=== PATIENT | male | born 1975 ===

== ENCOUNTER 2017-01-14 19:57 | Inpatient (IN) | payer OTHER ==
[2017-01-14] MEDS ORDERED: Albuterol-Ipratrop 3 mg / 0.5 (3 ml) UD IH STA (21:16)
[2017-01-14] MEDS ORDERED: Sodium Chloride 0.9% 1,000 ML IV STA (21:16)
--- NOTE | 2017-01-14 21:20 | ED PDOC ---
HPI: General Adult <Bulmaro Mosley III - Last Filed: 01/15/17 00:45> Chief Complaint (Provider): fever History Per: Patient History/Exam Limitations: no limitations Onset/Duration Of Symptoms: Days (5) Current Symptoms Are (Timing): Still Present Additional History Per: Patient <Alexia Anton - Last Filed: 01/15/17 04:13> Time Seen by Provider: 01/14/17 21:01 Chief Complaint (Nursing): Fever Additional Complaint(s): 41 y/o male presents with fever x 5 days. Associated headache, bodyaches, and dry cough with deep breaths. Patient went back to work today and feels symptoms were worsened. Last dose Tylenol 16:00. Denies neck pain/stiffness, ear pain, throat pain, nausea/vomiting, chest pain, shortness of breath, palpitations, abdominal pain, recent travel, sick contacts. (Alexia Anton) Past Medical History <Bulmaro Mosley III - Last Filed: 01/15/17 00:45> Reviewed: Historical Data, Nursing Documentation, Vital Signs - Medical History PMH: No Chronic Diseases - Surgical History Surgical History: Appendectomy - Family History Family History: States: Unknown Family Hx - Living Arrangements Living Arrangements: With Family <Alexia Anton - Last Filed: 01/15/17 04:13> Vital Signs: Last Vital Signs Temp 99.1 F 01/15/17 04:07 Pulse 89 01/15/17 04:07 Resp 18 01/15/17 04:07 BP 120/60 01/15/17 04:07 Pulse Ox 100 01/15/17 04:12 - Home Medications Home Medications: Ambulatory Orders Medication Instructions Recorded No Known Home Med 01/15/17 - Allergies Allergies/Adverse Reactions: Allergies Allergy/AdvReac Type Severity Reaction Status Date / Time No Known Allergies Allergy Verified 01/14/17 20:30 Review of Systems ROS Statement: Except As Marked, All Systems Reviewed And Found Negative Constitutional: Positive for: Fever Respiratory: Positive for: Cough <Alexia Anton - Last Filed: 01/15/17 04:13> Physical Exam - Reviewed Nursing Documentation Reviewed: Yes Vital Signs Reviewed: Yes - Physical Exam Appears: Positive for: Well, Non-toxic, No Acute Distress Head Exam: Positive for: ATRAUMATIC, NORMAL INSPECTION, NORMOCEPHALIC Skin: Positive for: Normal Color Eye Exam: Positive for: Normal appearance, EOMI, PERRL ENT: Positive for: Normal ENT Inspection Neck: Positive for: Normal, Painless ROM Cardiovascular/Chest: Positive for: Regular Rate, Rhythm Respiratory: Positive for: Normal Breath Sounds Gastrointestinal/Abdominal: Positive for: Normal Exam Back: Positive for: Normal Inspection Extremity: Positive for: Normal ROM Neurologic/Psych: Positive for: Alert, Oriented <Alexia Anton - Last Filed: 01/15/17 04:13> - Laboratory Results Result Diagrams: 01/14/17 21:52 01/14/17 21:52 <Bulmaro Mosley III - Last Filed: 01/15/17 00:45> - Laboratory Results Result Diagrams: 01/14/17 21:52 01/14/17 21:52 - ECG ECG: Positive for: Viewed By Me (reviewed by ED attending) ECG Rhythm: Positive for: Sinus Rhythm O2 Sat by Pulse Oximetry: 100 - Radiology X-Ray: Viewed By Me X-Ray Interpretation: No Acute Disease <Alexia Anton - Last Filed: 01/15/17 04:13> - Progress ED Course And Treament: labs, flu, strep, chest xray, IV fluids, PO tylenol Patient evaluated by ED attending Dr. Mosley; lumbar puncture procedure explained/recommended for persistent headaches, fever including risks vs benefits. Patient agreeable CT head ordered Consent signed for procedure. Procedure performed by Dr. Mosley; csf sent. 3:00 Patient states he is feeling better; headache improved Case discussed with ED attending Dr. Rosa; will place in observation for persistent fever, headache. IV rocephin, IV acyclovir, IV vanco ordered (Alexia Anton) Medical Decision Making <Bulmaro Mosley III - Last Filed: 01/15/17 00:45> <Alexia Anton - Last Filed: 01/15/17 04:13> Medical Decision Making: attending note procedure note Given fever, headache, mild elev WBC, normal CT brain, decision made to perform LP r/o meningitis. Consent obtained via japanese fluent RN translating. Risks of infection, spinal leak, nerve damage or other complications explained. Pt sat upright, lidocaine 2% 4ml infiltrated into L3L4 space. Spinal needle inserted w return of clear CSF on second attempt. 4 tubes obtained. Stylet replaced and needle withdrawn. Placed supine, tolerated well. Endorse Dr Rosa [id number] pending LP results and dispo. (Bulmaro Mosley III) Disposition <Bulmaro Mosley III - Last Filed: 01/15/17 00:45> - Patient ED Disposition Is Patient to be Admitted: Yes - Disposition Disposition Time: 03:20 - Pt Status Changed To: Hospital Disposition Of: Observation - POA Present On Arrival: None <Alexia Anton - Last Filed: 01/15/17 04:13> - Clinical Impression Clinical Impression: Febrile illness, Headache - Disposition Condition: FAIR
[2017-01-14 22:08] LABS: BASO # 0.1 K/uL (0.0-0.2); BASO % 0.5 % (0.0-2.0); EOS % 0.3 % (0.0-4.0); HEMATOCRIT 40.8 % (35.0-51.0); LYMPH # 2.1 K/uL (1.0-4.3); LYMPH % 18.6 % (20.0-40.0); MEAN CELL VOLUME 90.7 fl (80.0-94.0); MEAN CORPUSCULAR HEMOGLOBIN 30.6 pg (27.0-31.0); MEAN CORPUSCULAR HGB CONC 33.8 g/dL (33.0-37.0); MEAN PLATELET VOLUME 8.3 fl (7.2-11.7); MONO # 1.3 K/uL (0.0-0.8); MONO % 11.5 % (0.0-10.0); NEUT # 7.7 K/uL (1.8-7.0); NEUT % 69.1 % (50.0-75.0); NRBC % 0.1 % (0.0-0.0); RED CELL DISTRIBUTION WIDTH 13.1 % (11.5-14.5); WHITE BLOOD COUNT 11.1 K/uL (4.8-10.8)
[2017-01-14] MEDS ORDERED: Albuterol-Ipratrop 3 mg / 0.5 (3 ml) UD ONE (22:12)
[2017-01-14 22:21] LABS: ALB/GLOB RATIO 1.2 (1.0-2.1); ALKALINE PHOSPHATASE 134 U/L (38-126); ALT/SGPT 101 U/L (21-72); AST/SGOT 65 U/L (17-59); BILIRUBIN,TOTAL 0.6 mg/dl (0.2-1.3); BLOOD UREA NITROGEN 11 mg/dl (9-20); CALCIUM 9.4 mg/dL (8.4-10.2); CARBON DIOXIDE 28 mmol/L (22-30); CHLORIDE 97 mmol/L (98-107); GFR AFRICAN-AMERICAN > 60; GLUCOSE,RANDOM 116 mg/dL (75-110); POTASSIUM 3.9 MMOL/L (3.6-5.0); SODIUM 138 mmol/l (132-148); TOTAL PROTEIN 8.7 G/DL (6.3-8.2)
[2017-01-15 00:53] LABS: FLUID TYPE SPINAL FLUID
[2017-01-15 01:34] LABS: CSF COMMENT COLORLESS
[2017-01-15 02:30] LABS: CSF NEUTROPHIL 0 % (0-0)
[2017-01-15] MEDS ORDERED: Vancomycin 1 g Inj ONE (03:17)
--- NOTE | 2017-01-15 03:59 | CP.PCM.HP ---
History of Present Illness - History of Present Illness History of Present Illness: Chief Complaint: headache and fever HPI: 41 M no PMH presents with a 5 day history of worsening headache, mild progressing to severe, sharp and stabbing, generalized headache, nonradiating, associated with fevers. Tmax in ER was 102. Patient denies sick contacts, no neck pain or stiffness or nuchal rigidity. WBC mildly elevated, LP neg for glucose and protein. +1 WBC, 1 RBC, no monos, no cell count. Pt given ceftriaxone, vancomycin, and acyclovir. Pt vitals reviewed, now afebrile. No acute distress. ROS: Per HPI, all other systems reviewed negative by me PMH: denies PSH: appendectomy FH: denies SH: denies tobacco, etoh, ivdu. Quit tobacco 3 years ago. ALLERGIES: NKDA MEDICATIONS: reviewed and as below Temp Pulse Resp BP Pulse Ox 99.1 F 89 18 120/60 100 01/15/17 03:15 01/15/17 03:15 01/15/17 03:15 01/15/17 03:15 01/15/17 04:01 GENERAL APPEARANCE: Well developed, well nourished, alert and cooperative, and appears to be in no acute distress. HEENT: normocephalic, atraumatic PERRL, EOMI. Vision is grossly intact. External auditory canals clear, hearing grossly intact. No nasal discharge. Oral cavity and pharynx normal. No inflammation, swelling, exudate, or lesions. NECK: Neck supple, non-tender without lymphadenopathy, masses or thyromegaly. No nuchal rgidity. CARDIAC: Normal S1 and S2. No S3, S4 or murmurs. Rhythm is regular. LUNGS: Clear to auscultation and percussion without rales, rhonchi, wheezing or diminished breath sounds. ABDOMEN: Positive bowel sounds. Soft, nondistended, nontender. No guarding or rebound. No masses. BACK: Examination of the spine reveals no spinal deformity, symmetry of spinal muscles, EXTREMITIES: No significant deformity or joint abnormality. No edema. NEUROLOGICAL: Strength and sensation symmetric and intact throughout. Reflexes 2 + throughout. SKIN: Skin normal color, texture and turgor with no lesions or eruptions. PSYCHIATRIC: The patient was oriented to person, place, and time. Normal affect. LABS: 01/14/17 21:52 01/14/17 21:[address] report pending, prelim, neg. ACTIVE MEDICATIONS Allergies No Known Allergies Allergy (Verified 01/14/17 20:30) Height & Weight Height 5 ft 6 in Weight 165 lb 5.547 oz Start Date/Time Active Medications 01/15/17 03:16 Vancomycin [Vancomycin Inj] 1 gm Sodium Chloride 0.9% 250 ml IVPB STAT 01/15/17 03:17 Acyclovir [Zovirax 500 mg Inj] 800 mg Sodium Chloride 0.9% 250 ml IVPB STAT cefTRIAXone [Rocephin] 1 gm Sodium Chloride 0.9% 100 ml IV STAT 01/15/17 09:00 Acyclovir 800 MG/250ML NS Q8H Acyclovir [Zovirax 500 mg Inj] 800 mg Sodium Chloride 0.9% 250 ml IVPB Q8 Enoxaparin [Lovenox] 40 mg SC DAILY ASSESSMENT AND PLAN 41 M no PMH presents with a 5 day history of worsening headache, mild progressing to severe, sharp and stabbing, generalized headache, nonradiating, associated with fevers. Tmax in ER was 102. Patient denies sick contacts. WBC mildly elevated, LP neg for glucose and protein. +1 WBC, 1 RBC, no monos, no cell count. Pt given ceftriaxone, vancomycin, and acyclovir. Pt vitals reviewed , now afebrile. No acute distress. Concern for possible Viral Meningitis - LP cultures, herpes pending - currently afebrile, no nuchal rigidity - continue Acyclovir at present patient received one dose Vanc and Ceftriaxone in ER as well - procalcitonin ordered - monitor closely - consider ID consult DVT prophylaxis LOVENOX SC daily. Present on Admission - Present on Admission Any Indicators Present on Admission: No Past Patient History - Past Social History Smoking Status: Never Smoked - PSYCHIATRIC Hx Substance Use: No - SURGICAL HISTORY Hx Appendectomy: Yes - ANESTHESIA Hx Anesthesia: Yes Hx Anesthesia Reactions: No Meds Allergies/Adverse Reactions: Allergies Allergy/AdvReac Type Severity Reaction Status Date / Time No Known Allergies Allergy Verified 01/14/17 20:30 Results - Vital Signs Recent Vital Signs: Last Vital Signs Temp 99.1 F 01/15/17 03:15 Pulse 89 01/15/17 03:15 Resp 18 01/15/17 03:15 BP 120/60 01/15/17 03:15 Pulse Ox 98 01/15/17 03:15 - Labs Result Diagrams: 01/14/17 21:52 01/14/17 21:52
[2017-01-15] MEDS ORDERED: cefTRIAXone (Rocephin) 1 gm Inj ONE (04:00)
[2017-01-15 07:35] LABS: HEMATOCRIT 42.7 % (35.0-51.0); MEAN CELL VOLUME 91.2 fl (80.0-94.0); MEAN CORPUSCULAR HEMOGLOBIN 30.6 pg (27.0-31.0); MEAN CORPUSCULAR HGB CONC 33.6 g/dL (33.0-37.0); RED CELL DISTRIBUTION WIDTH 13.1 % (11.5-14.5); WHITE BLOOD COUNT 8.3 K/uL (4.8-10.8)
[2017-01-15 07:38] LABS: BLOOD UREA NITROGEN 10 mg/dl (9-20); CALCIUM 8.8 mg/dL (8.4-10.2); CARBON DIOXIDE 26 mmol/L (22-30); CHLORIDE 103 mmol/L (98-107); GFR AFRICAN-AMERICAN > 60; GLUCOSE,RANDOM 116 mg/dL (75-110); POTASSIUM 3.9 MMOL/L (3.6-5.0); SODIUM 140 mmol/l (132-148)
[2017-01-15] MEDS ORDERED: Pneumococcal 23-Valent Vaccine IM ONE (09:00)
[2017-01-15] MEDS: Enoxaparin 40 mg Syringe SC SCH (09:06)
--- NOTE | 2017-01-15 09:27 | CT ---
PROCEDURE: CT HEAD WITHOUT CONTRAST. HISTORY: fever, headache COMPARISON: None available. TECHNIQUE: Axial computed tomography images were obtained through the head/brain without intravenous contrast. Radiation dose: Total exam DLP = 873.03 mGy-cm. This CT exam was performed using one or more of the following dose reduction techniques: Automated exposure control, adjustment of the mA and/or kV according to patient size, and/or use of iterative reconstruction technique. FINDINGS: HEMORRHAGE: No intracranial hemorrhage. BRAIN: No mass effect or edema. No atrophy or chronic microvascular ischemic changes. VENTRICLES: Unremarkable. No hydrocephalus. CALVARIUM: Unremarkable. PARANASAL SINUSES: Unremarkable as visualized. No significant inflammatory changes. MASTOID AIR CELLS: Unremarkable as visualized. No inflammatory changes. OTHER FINDINGS: None. IMPRESSION: Normal CT of the Head.
--- NOTE | 2017-01-15 10:10 | RAD ---
HISTORY: fever, cough COMPARISON: No prior. TECHNIQUE: Chest PA and lateral FINDINGS: LUNGS: Poor inspiration with low lung volumes, mild crowded bronchovascular markings and minor bibasilar atelectasis. PLEURA: No significant pleural effusion identified. No pneumothorax apparent. CARDIOVASCULAR: Normal. OSSEOUS STRUCTURES: Minimal multilevel degenerative spondylosis of the thoracic spine. VISUALIZED UPPER ABDOMEN: Normal. OTHER FINDINGS: None. IMPRESSION: Poor inspiration with low lung volumes, mild crowded bronchovascular markings and minor bibasilar atelectasis.
[2017-01-15 12:50] LABS: ALB/GLOB RATIO 1.1 (1.0-2.1); ALKALINE PHOSPHATASE 130 U/L (38-126); ALT/SGPT 90 U/L (21-72); AST/SGOT 67 U/L (17-59); BILIRUBIN,TOTAL 0.5 mg/dl (0.2-1.3); BLOOD UREA NITROGEN 11 mg/dl (9-20); CALCIUM 9.1 mg/dL (8.4-10.2); CARBON DIOXIDE 27 mmol/L (22-30); CHLORIDE 101 mmol/L (98-107); GFR AFRICAN-AMERICAN > 60; GLUCOSE,RANDOM 102 mg/dL (75-110); POTASSIUM 4.2 MMOL/L (3.6-5.0); SODIUM 140 mmol/l (132-148); TOTAL PROTEIN 8.5 G/DL (6.3-8.2)
[2017-01-15 14:16] LABS: RBC URINE 3 /hpf (0-3); URINE BILIRUBIN NEGATIVE (NEGATIVE); URINE BLOOD SMALL (NEGATIVE); URINE COLOR YELLOW (YELLOW); URINE GLUCOSE (UA) NEG (Normal); URINE KETONE NEGATIVE (NEGATIVE); URINE LEUKOCYTE ESTERASE NEG Leu/uL (Negative); URINE PROTEIN NEGATIVE (NEGATIVE); URINE UROBILINOGEN 0.2-1.0 mg/dL (0.2-1.0); WBC URINE < 1 /hpf (0-5)
[2017-01-16 08:02] LABS: BASO # 0.1 K/uL (0.0-0.2); BASO % 0.4 % (0.0-2.0); EOS % 0.1 % (0.0-4.0); HEMATOCRIT 42.2 % (35.0-51.0); LYMPH # 2.1 K/uL (1.0-4.3); LYMPH % 16.3 % (20.0-40.0); MEAN CELL VOLUME 90.7 fl (80.0-94.0); MEAN CORPUSCULAR HEMOGLOBIN 30.4 pg (27.0-31.0); MEAN CORPUSCULAR HGB CONC 33.5 g/dL (33.0-37.0); MEAN PLATELET VOLUME 8.3 fl (7.2-11.7); MONO # 1.4 K/uL (0.0-0.8); MONO % 10.5 % (0.0-10.0); NEUT # 9.4 K/uL (1.8-7.0); NEUT % 72.7 % (50.0-75.0); RED CELL DISTRIBUTION WIDTH 12.9 % (11.5-14.5); WHITE BLOOD COUNT 12.9 K/uL (4.8-10.8)
[2017-01-16] MEDS: Enoxaparin 40 mg Syringe SC SCH (09:50)
--- NOTE | 2017-01-16 14:25 | CP.PCM.CON ---
History of Present Illness - History of Present Illness History of Present Illness: Infectious Disease Consultation Note- asked to see this patient at the request of Hospitalist for FUO. HPI- Pt. is a 41 y/o male with no PMH who was admitted with c/o fever and KEMP doer past few days. Pt. states the KEMP are mostly frontal and at times the pain is behind his eyes, however he denies nay diplopia and denies any blurry vision. Pt. denies any neck pain or stiffness. Denies nay recent travel, denies any sick contacts, denies any sob , but states has mild nonproductive cough, denies any sore throat, denies any sob, denies any chest pain, denies any abd. pain, denies any n/v, denies any diarrhea, denies any dysurea. He is originally from [place] but has been living in for past 2 years. Pt. also states he has slight myalgias with the fever. He denies having anything similar to this before. Pt. has been febrile since admission between 103-101 , minimal leukocytosis only and CSF is clear and no WBC and so far CSF culture is also negative. He has been empirically started on ceftriaxone, vanco and acyclovir as per the primary team. Pt. currently states he feels slightly better compared to admission, however, he still is getting fevers along with frontal KEMP with the onset of the fever. PMH: denies PSH: appendectomy FH: denies SH: denies tobacco, etoh, ivdu. Quit tobacco 3 years ago. ALLERGIES: NKDA Review of Systems - Review of Systems Review of Systems: ROS- + fever, + frontal KEMP, denies any neck pain or stiffness, denies any sob, denies any chest pain, minimal dry cough, denies any abd. pain, denies any n/v, denies any diplopia or any blurry vision, denies any dysurea, denies any diarrhea. denies nay tick or mosquito bites denies any animal exposure except his dog which he has had for one year Past Patient History - Past Medical History & Family History Past Medical History?: No - Past Social History Smoking Status: Former Smoker Alcohol: Occasional Drugs: Denies Home Situation {Lives}: With Family - CARDIAC Hx Cardiac Disorders: No - PULMONARY Hx Respiratory Disorders: No - NEUROLOGICAL Hx Neurological Disorder: No - HEENT Hx HEENT Problems: No - RENAL Hx Chronic Kidney Disease: No - ENDOCRINE/METABOLIC Hx Endocrine Disorders: No - HEMATOLOGICAL/ONCOLOGICAL Hx Blood Disorders: No - INTEGUMENTARY Hx Dermatological Problems: No - MUSCULOSKELETAL/RHEUMATOLOGICAL Hx Falls: No - GASTROINTESTINAL Hx Gastrointestinal Disorders: No - GENITOURINARY/GYNECOLOGICAL Hx Genitourinary Disorders: No - PSYCHIATRIC Hx Substance Use: No - SURGICAL HISTORY Hx Appendectomy: Yes - ANESTHESIA Hx Anesthesia: Yes Hx Anesthesia Reactions: No Meds Allergies/Adverse Reactions: Allergies Allergy/AdvReac Type Severity Reaction Status Date / Time No Known Allergies Allergy Verified 01/14/17 20:30 - Medications Medications: Current Medications Acetaminophen (Tylenol 325mg Tab) 650 mg PO Q4 PRN PRN Reason: Fever >100.4 F Last Admin: 01/16/17 07:33 Dose: 650 mg Enoxaparin Sodium (Lovenox) 40 mg SC DAILY COLLIN PRN Reason: Protocol Last Admin: 01/16/17 09:50 Dose: 40 mg Acyclovir 800 mg/ Sodium (Chloride) 250 mls @ 250 mls/hr IVPB Q8 COLLIN Last Admin: 01/16/17 09:49 Dose: 250 mls/hr Physical Exam - Constitutional Appears: No Acute Distress - Head Exam Head Exam: ATRAUMATIC - Eye Exam Eye Exam: EOMI, PERRL - ENT Exam Additional comments: dry oral mucosa - Neck Exam Neck exam: Positive for: Full Rom Additional comments: supple - Respiratory Exam Respiratory Exam: NORMAL BREATHING PATTERN Additional comments: no wheezing good air entry b/l minimal coarse breath sounds at right base - Cardiovascular Exam Cardiovascular Exam: RRR, +S1, +S2 - GI/Abdominal Exam GI & Abdominal Exam: Normal Bowel Sounds, Soft Additional comments: NT, ND - Extremities Exam Extremities exam: Positive for: normal inspection - Neurological Exam Neurological exam: Alert, Oriented x3 Results - Vital Signs Recent Vital Signs: Last Vital Signs Temp 99.0 F 01/16/17 08:33 Pulse 109 H 01/16/17 07:43 Resp 20 01/16/17 07:43 BP 126/75 01/16/17 07:43 Pulse Ox 95 01/16/17 07:43 - Labs Result Diagrams: 01/16/17 07:05 01/15/17 12:10 Labs: Laboratory Results - last 72 hr 05/01/14/17 01/14/17 21:52 21:52 21:52 WBC 11.1 H RBC 4.50 Hgb 13.8 Hct 40.8 MCV 90.7 MCH 30.6 MCHC 33.8 RDW 13.1 Plt Count 215 MPV 8.3 Neut % (Auto) 69.1 Lymph % (Auto) 18.6 L Pope % (Auto) 11.5 H Eos % (Auto) 0.3 Baso % (Auto) 0.5 Neut # 7.7 H Lymph # 2.1 Pope # 1.3 H Eos # 0.0 Baso # 0.1 Sodium 138 Potassium 3.9 Chloride 97 L Carbon Dioxide 28 Anion Gap 17 BUN 11 Creatinine 0.9 Est GFR ( Amer) > 60 Est GFR (Non-Af Amer) > 60 Random Glucose 116 H Lactic Acid 1.0 Calcium 9.4 Total Bilirubin 0.6 AST 65 H ALT 101 H Alkaline Phosphatase 134 H Total Protein 8.7 H Albumin 4.7 Globulin 4.0 H Albumin/Globulin Ratio 1.2 Procalcitonin Urine Color Urine Clarity Urine pH Ur Specific Rocky Urine Protein Urine Glucose (UA) Urine Ketones Urine Blood Urine Nitrate Urine Bilirubin Urine Urobilinogen Ur Leukocyte Esterase Urine RBC (Auto) Urine Microscopic WBC Amorphous Sediment Fluid Type CSF Volume CSF Appearance CSF WBC CSF RBC CSF Total Cell Counted CSF Neutrophils CSF Lymphocytes CSF Monos/Macrophages CSF Comment CSF Glucose CSF Total Protein Hepatitis A IgM Ab Hep Bs Antigen Hep B Core IgM Ab Hepatitis C Antibody HIV-1 Ab Rapid Screen Influenza Typ A,B (EIA) Grp A Beta Strep Ag 01/14/17 01/14/17 01/15/17 22:23 22:23 00:51 WBC RBC Hgb Hct MCV MCH MCHC RDW Plt Count MPV Neut % (Auto) Lymph % (Auto) Pope % (Auto) Eos % (Auto) Baso % (Auto) Neut # Lymph # Pope # Eos # Baso # Sodium Potassium Chloride Carbon Dioxide Anion Gap BUN Creatinine Est GFR ( Amer) Est GFR (Non-Af Amer) Random Glucose Lactic Acid Calcium Total Bilirubin AST ALT Alkaline Phosphatase Total Protein Albumin Globulin Albumin/Globulin Ratio Procalcitonin Urine Color Urine Clarity Urine pH Ur Specific Rocky Urine Protein Urine Glucose (UA) Urine Ketones Urine Blood Urine Nitrate Urine Bilirubin Urine Urobilinogen Ur Leukocyte Esterase Urine RBC (Auto) Urine Microscopic WBC Amorphous Sediment Fluid Type Spinal fluid CSF Volume 1 CSF Appearance Clear/colorless CSF WBC 1.0 CSF RBC 1.0 H CSF Total Cell Counted TEST NOT PERFORMED CSF Neutrophils 0 CSF Lymphocytes 0.0 CSF Monos/Macrophages 0 CSF Comment Colorless CSF Glucose CSF Total Protein Hepatitis A IgM Ab Hep Bs Antigen Hep B Core IgM Ab Hepatitis C Antibody HIV-1 Ab Rapid Screen Influenza Typ A,B (EIA) Negative for flu a/b Grp A Beta Strep Ag Negative 01/15/17 01/15/17 01/15/17 00:51 00:51 02:07 WBC RBC Hgb Hct MCV MCH MCHC RDW Plt Count MPV Neut % (Auto) Lymph % (Auto) Pope % (Auto) Eos % (Auto) Baso % (Auto) Neut # Lymph # Pope # Eos # Baso # Sodium Potassium Chloride Carbon Dioxide Anion Gap BUN Creatinine Est GFR ( Amer) Est GFR (Non-Af Amer) Random Glucose Lactic Acid Calcium Total Bilirubin AST ALT Alkaline Phosphatase Total Protein Albumin Globulin Albumin/Globulin Ratio Procalcitonin Urine Color Urine Clarity Urine pH Ur Specific Rocky Urine Protein Urine Glucose (UA) Urine Ketones Urine Blood Urine Nitrate Urine Bilirubin Urine Urobilinogen Ur Leukocyte Esterase Urine RBC (Auto) Urine Microscopic WBC Amorphous Sediment Fluid Type CSF Volume CSF Appearance CSF WBC CSF RBC CSF Total Cell Counted CSF Neutrophils CSF Lymphocytes CSF Monos/Macrophages CSF Comment CSF Glucose 63 CSF Total Protein 23.0 Hepatitis A IgM Ab Hep Bs Antigen Hep B Core IgM Ab Hepatitis C Antibody HIV-1 Ab Rapid Screen Non reactive Influenza Typ A,B (EIA) Grp A Beta Strep Ag 01/15/17 01/15/17 01/15/17 07:13 07:13 12:10 WBC 8.3 RBC 4.68 Hgb 14.3 Hct 42.7 MCV 91.2 MCH 30.6 MCHC 33.6 RDW 13.1 Plt Count 199 MPV Neut % (Auto) Lymph % (Auto) Pope % (Auto) Eos % (Auto) Baso % (Auto) Neut # Lymph # Pope # Eos # Baso # Sodium 140 140 Potassium 3.9 4.2 Chloride 103 101 Carbon Dioxide 26 27 Anion Gap 15 17 BUN 10 11 Creatinine 0.9 0.9 Est GFR ( Amer) > 60 > 60 Est GFR (Non-Af Amer) > 60 > 60 Random Glucose 116 H 102 Lactic Acid Calcium 8.8 9.1 Total Bilirubin 0.5 AST 67 H ALT 90 H Alkaline Phosphatase 130 H Total Protein 8.5 H Albumin 4.4 Globulin 4.1 H Albumin/Globulin Ratio 1.1 Procalcitonin Urine Color Urine Clarity Urine pH Ur Specific Rocky Urine Protein Urine Glucose (UA) Urine Ketones Urine Blood Urine Nitrate Urine Bilirubin Urine Urobilinogen Ur Leukocyte Esterase Urine RBC (Auto) Urine Microscopic WBC Amorphous Sediment Fluid Type CSF Volume CSF Appearance CSF WBC CSF RBC CSF Total Cell Counted CSF Neutrophils CSF Lymphocytes CSF Monos/Macrophages CSF Comment CSF Glucose CSF Total Protein Hepatitis A IgM Ab Hep Bs Antigen Hep B Core IgM Ab Hepatitis C Antibody HIV-1 Ab Rapid Screen Influenza Typ A,B (EIA) Grp A Beta Strep Ag 01/15/17 01/15/17 01/15/17 12:10 12:10 14:10 WBC RBC Hgb Hct MCV MCH MCHC RDW Plt Count MPV Neut % (Auto) Lymph % (Auto) Pope % (Auto) Eos % (Auto) Baso % (Auto) Neut # Lymph # Pope # Eos # Baso # Sodium Potassium Chloride Carbon Dioxide Anion Gap BUN Creatinine Est GFR ( Amer) Est GFR (Non-Af Amer) Random Glucose Lactic Acid Calcium Total Bilirubin AST ALT Alkaline Phosphatase Total Protein Albumin Globulin Albumin/Globulin Ratio Procalcitonin 0.11 L Urine Color Yellow Urine Clarity Clear Urine pH 7.0 Ur Specific Rocky 1.018 Urine Protein Negative Urine Glucose (UA) Neg Urine Ketones Negative Urine Blood Small Urine Nitrate Negative Urine Bilirubin Negative Urine Urobilinogen 0.2-1.0 Ur Leukocyte Esterase Neg Urine RBC (Auto) 3 Urine Microscopic WBC < 1 Amorphous Sediment Rare H Fluid Type CSF Volume CSF Appearance CSF WBC CSF RBC CSF Total Cell Counted CSF Neutrophils CSF Lymphocytes CSF Monos/Macrophages CSF Comment CSF Glucose CSF Total Protein Hepatitis A IgM Ab Negative Hep Bs Antigen Negative Hep B Core IgM Ab Negative Hepatitis C Antibody Negative HIV-1 Ab Rapid Screen Influenza Typ A,B (EIA) Grp A Beta Strep Ag 01/16/17 07:05 WBC 12.9 H D RBC 4.65 Hgb 14.1 Hct 42.2 MCV 90.7 MCH 30.4 MCHC 33.5 RDW 12.9 Plt Count 273 MPV 8.3 Neut % (Auto) 72.7 Lymph % (Auto) 16.3 L Pope % (Auto) 10.5 H Eos % (Auto) 0.1 Baso % (Auto) 0.4 Neut # 9.4 H Lymph # 2.1 Pope # 1.4 H Eos # 0.0 Baso # 0.1 Sodium Potassium Chloride Carbon Dioxide Anion Gap BUN Creatinine Est GFR ( Amer) Est GFR (Non-Af Amer) Random Glucose Lactic Acid Calcium Total Bilirubin AST ALT Alkaline Phosphatase Total Protein Albumin Globulin Albumin/Globulin Ratio Procalcitonin Urine Color Urine Clarity Urine pH Ur Specific Rocky Urine Protein Urine Glucose (UA) Urine Ketones Urine Blood Urine Nitrate Urine Bilirubin Urine Urobilinogen Ur Leukocyte Esterase Urine RBC (Auto) Urine Microscopic WBC Amorphous Sediment Fluid Type CSF Volume CSF Appearance CSF WBC CSF RBC CSF Total Cell Counted CSF Neutrophils CSF Lymphocytes CSF Monos/Macrophages CSF Comment CSF Glucose CSF Total Protein Hepatitis A IgM Ab Hep Bs Antigen Hep B Core IgM Ab Hepatitis C Antibody HIV-1 Ab Rapid Screen Influenza Typ A,B (EIA) Grp A Beta Strep Ag Microbiology 01/15/17 02:20 Blood-Venous Blood Culture - Preliminary NO GROWTH AFTER 24 HOURS 01/15/17 02:20 Blood-Venous Blood Culture - Preliminary NO GROWTH AFTER 24 HOURS 01/15/17 00:51 Cerebral Spinal Fluid Gram Stain - Final Accession No. : [id number] Patient Name / ID : TASHI TUCKER / [id number] Exam Date : 01/14/2017 21:37:50 ( Approved ) Study Comment : Sex / Age : M / 41Y Creator : Dimas Peralta MD Dictator : Dimas Peralta MD Director Of Audiology : Wind Farm Engineer : Dimas Peralta MD Approver2 : Report Date : 01/15/2017 10:08:12 My Comment : HISTORY: fever, cough COMPARISON: No prior. TECHNIQUE: Chest PA and lateral FINDINGS: LUNGS: Poor inspiration with low lung volumes, mild crowded bronchovascular markings and minor bibasilar atelectasis. PLEURA: No significant pleural effusion identified. No pneumothorax apparent. CARDIOVASCULAR: Normal. OSSEOUS STRUCTURES: Minimal multilevel degenerative spondylosis of the thoracic spine. VISUALIZED UPPER ABDOMEN: Normal. OTHER FINDINGS: None. IMPRESSION: Poor inspiration with low lung volumes, mild crowded bronchovascular markings and minor bibasilar atelectasis. Accession No. : [id number] Patient Name / ID : TASHI TUCKER / [id number] Exam Date : 01/15/2017 00:06:53 ( Approved ) Study Comment : Sex / Age : M / 41Y Creator : Dimas Peralta MD Dictator : Dimas Peralta MD Director Of Audiology : Wind Farm Engineer : Dimas Peralta MD Approver2 : Report Date : 01/15/2017 09:25:46 My Comment : PROCEDURE: CT HEAD WITHOUT CONTRAST. HISTORY: fever, headache COMPARISON: None available. TECHNIQUE: Axial computed tomography images were obtained through the head/brain without intravenous contrast. Radiation dose: Total exam DLP = 873.03 mGy-cm. This CT exam was performed using one or more of the following dose reduction techniques: Automated exposure control, adjustment of the mA and/or kV according to patient size, and/or use of iterative reconstruction technique. FINDINGS: HEMORRHAGE: No intracranial hemorrhage. BRAIN: No mass effect or edema. No atrophy or chronic microvascular ischemic changes. VENTRICLES: Unremarkable. No hydrocephalus. CALVARIUM: Unremarkable. PARANASAL SINUSES: Unremarkable as visualized. No significant inflammatory changes. MASTOID AIR CELLS: Unremarkable as visualized. No inflammatory changes. OTHER FINDINGS: None. IMPRESSION: Normal CT of the Head. Assessment & Plan (1) Febrile illness Status: Acute (2) Headache Status: Acute - Assessment and Plan (Free Text) Assessment: A/P- 41 year old male with FUO. so far the etiology of the fever is unclear. r/o infectious vs noninfectious inflammatory etiology vs malignancy. blood cx- neg x 2 CSF cell cell count and gram stain and culture so far negative CXR- not very conclusive , does have mild cough HIV AB- negative hepatitis panel negative has High LFTs and High Globulin. influenza- negative. plan- check 2 more blood cx. check UA and urine cx. check CSF HSV PCR r/o hsv viral meningitis , in the interim continue with Iv acyclovir pending this result. check Lyme serolgy and if lab can add Lyme AB to the csf specimen to be tested as well. eventhough HIV ab is negative, advise to check HIV VL as well. check bartonella serology. check EBV serology. check CMV serology. check quantiferon gold. check ESR . check P- Anca , C-anca. check JAY and anti ds- DNA check JUSTIN levels. check chest/abd CT for further evaluation. check 2d echo r/o IE. r/o temporal arteritis if high ESR and if continues to have KEMP and fever. advise to continue with IV ceftriaxone pending further results and final CSF cx . check sputum cx as well. check RPR and CSF VDRL as well. Thank you for allowing me to take part in the care of this patient. All above d/w patient at length and he verbalizes full understanding of all above.
[2017-01-16] MEDS ORDERED: Sodium Chloride 3% for Inhalation 4 ML VIAL.NEB IH PRN (15:17)
[2017-01-16] MEDS ORDERED: Iohexol 240 (50 ml) PO ONE (16:12)
--- NOTE | 2017-01-16 17:51 | CP.PCM.PN ---
Subjective - Date & Time of Evaluation Date of Evaluation: 01/16/17 Time of Evaluation: 11:20 - Subjective Subjective: Pt seen and examined. Denied headache but still spiking temperature Objective - Vital Signs/Intake and Output Vital Signs (last 24 hours): Temp Pulse Resp BP Pulse Ox 99.9 F H 105 H 18 126/76 94 L 01/16/17 16:01 01/16/17 16:01 01/16/17 16:01 01/16/17 16:01 01/16/17 16:01 - Medications Medications: Current Medications Acetaminophen (Tylenol 325mg Tab) 650 mg PO Q4 PRN PRN Reason: Fever >100.4 F Last Admin: 01/16/17 14:16 Dose: 650 mg Enoxaparin Sodium (Lovenox) 40 mg SC DAILY COLLIN PRN Reason: Protocol Last Admin: 01/16/17 09:50 Dose: 40 mg Acyclovir 800 mg/ Sodium (Chloride) 250 mls @ 250 mls/hr IVPB Q8 COLLIN Last Admin: 01/16/17 09:49 Dose: 250 mls/hr Ceftriaxone Sodium 1 gm/ (Sodium Chloride) 100 mls @ 100 mls/hr IVPB DAILY COLLIN - Constitutional Appears: No Acute Distress - Head Exam Head Exam: ATRAUMATIC - Eye Exam Eye Exam: PERRL - ENT Exam ENT Exam: Mucous Membranes Moist - Neck Exam Neck Exam: absent: Lymphadenopathy, Meningismus - Respiratory Exam Respiratory Exam: absent: Rhonchi, Wheezes, Respiratory Distress - Cardiovascular Exam Cardiovascular Exam: REGULAR RHYTHM, +S1, +S2 - GI/Abdominal Exam GI & Abdominal Exam: Soft. absent: Tenderness - Rectal Exam Rectal Exam: Deferred - Extremities Exam Extremities Exam: absent: Pedal Edema - Back Exam Back Exam: NORMAL INSPECTION - Neurological Exam Neurological Exam: Alert, Oriented x3 - Psychiatric Exam Psychiatric exam: Normal Affect - Skin Skin Exam: Dry, Intact Assessment and Plan (1) Febrile illness Status: Acute - Assessment and Plan (Free Text) Assessment: 41 yo male presents with fever associated with headaches and body aches. Denied chest pain or SOB. 1. Fever etiology still elusive ID consult with Dr Deleon appreciated continue IV Rocephin and Acyclovir LFTs slightly elevated but Hepatitis panel was negative Neoplastic fever???
[2017-01-16] MEDS ORDERED: Iohexol 300 100 ML IJ ONE (19:06)
[2017-01-16] MEDS ORDERED: Sodium Chloride 0.9% 50 ML IV ONE (19:06)
[2017-01-17] MEDS: Enoxaparin 40 mg Syringe SC SCH (09:51)
--- NOTE | 2017-01-17 11:41 | CP.PCM.PN ---
Subjective - Date & Time of Evaluation Date of Evaluation: 01/17/17 Time of Evaluation: 11:41 - Subjective Subjective: ID Note- Pt. was seen and examined today. Pt. state he feels much better today adn he denies any fever or any KEMP today. states he still has mild cough but denies any sob. Objective - Vital Signs/Intake and Output Vital Signs (last 24 hours): Temp Pulse Resp BP Pulse Ox 98.7 F 84 18 121/75 94 L 01/17/17 08:22 01/17/17 08:22 01/17/17 08:22 01/17/17 08:22 01/17/17 08:22 - Medications Medications: Current Medications Acetaminophen (Tylenol 325mg Tab) 650 mg PO Q4 PRN PRN Reason: Fever >100.4 F Last Admin: 01/16/17 21:39 Dose: 650 mg Enoxaparin Sodium (Lovenox) 40 mg SC DAILY [facility] PRN Reason: Protocol Last Admin: 01/17/17 09:51 Dose: 40 mg Acyclovir 800 mg/ Sodium (Chloride) 250 mls @ 250 mls/hr IVPB Q8 [facility] Last Admin: 01/17/17 09:50 Dose: 250 mls/hr Ceftriaxone Sodium 1 gm/ (Sodium Chloride) 100 mls @ 100 mls/hr IVPB DAILY [facility] Last Admin: 01/16/17 20:36 Dose: 100 mls/hr Ibuprofen (Motrin Tab) 600 mg PO Q6 [facility] Last Admin: 01/17/17 10:14 Dose: 600 mg - Additional Findings Additional findings: - Constitutional Appears: No Acute Distress - Head Exam Head Exam: ATRAUMATIC - Eye Exam Eye Exam: EOMI, PERRL - ENT Exam Additional comments: dry oral mucosa - Neck Exam Neck exam: Positive for: Full Rom Additional comments: supple - Respiratory Exam Respiratory Exam: NORMAL BREATHING PATTERN Additional comments: no wheezing good air entry b/l minimal coarse breath sounds at right base - Cardiovascular Exam Cardiovascular Exam: RRR, +S1, +S2 - GI/Abdominal Exam GI & Abdominal Exam: Normal Bowel Sounds, Soft Additional comments: NT, ND - Extremities Exam Extremities exam: Positive for: normal inspection - Neurological Exam Neurological exam: Alert, Oriented x 3 Laboratory Results - last 72 hr 01/14/17 01/14/17 01/14/17 21:52 21:52 21:52 WBC 11.1 H RBC 4.50 Hgb 13.8 Hct 40.8 MCV 90.7 MCH 30.6 MCHC 33.8 RDW 13.1 Plt Count 215 MPV 8.3 Neut % (Auto) 69.1 Lymph % (Auto) 18.6 L [place] % (Auto) 11.5 H Eos % (Auto) 0.3 Baso % (Auto) 0.5 Neut # 7.7 H Lymph # 2.1 [place] # 1.3 H Eos # 0.0 Baso # 0.1 ESR Sodium 138 Potassium 3.9 Chloride 97 L Carbon Dioxide 28 Anion Gap 17 BUN 11 Creatinine 0.9 Est GFR ( Amer) > 60 Est GFR (Non-Af Amer) > 60 Random Glucose 116 H Lactic Acid 1.0 Calcium 9.4 Total Bilirubin 0.6 AST 65 H ALT 101 H Alkaline Phosphatase 134 H Total Protein 8.7 H Albumin 4.7 Globulin 4.0 H Albumin/Globulin Ratio 1.2 Procalcitonin Urine Color Urine Clarity Urine pH Ur Specific [place] Urine Protein Urine Glucose (UA) Urine Ketones Urine Blood Urine Nitrate Urine Bilirubin Urine Urobilinogen Ur Leukocyte Esterase Urine RBC (Auto) Urine Microscopic WBC Amorphous Sediment Fluid Type CSF Volume CSF Appearance CSF WBC CSF RBC CSF Total Cell Counted CSF Neutrophils CSF Lymphocytes CSF Monos/Macrophages CSF Comment CSF Glucose CSF Total Protein CSF Lyme IgG Antibody CSF Lyme Disease DNA Lyme Bands Present Hepatitis A IgM Ab Hep Bs Antigen Hep B Core IgM Ab Hepatitis C Antibody HIV-1 Ab Rapid Screen HIV 1&2 Ag/Ab, 4th Gen Influenza Typ A,B (EIA) Grp A Beta Strep Ag 01/14/17 01/14/17 01/15/17 22:23 22:23 00:51 WBC RBC Hgb Hct MCV MCH MCHC RDW Plt Count MPV Neut % (Auto) Lymph % (Auto) [place] % (Auto) Eos % (Auto) Baso % (Auto) Neut # Lymph # [place] # Eos # Baso # ESR Sodium Potassium Chloride Carbon Dioxide Anion Gap BUN Creatinine Est GFR ( Amer) Est GFR (Non-Af Amer) Random Glucose Lactic Acid Calcium Total Bilirubin AST ALT Alkaline Phosphatase Total Protein Albumin Globulin Albumin/Globulin Ratio Procalcitonin Urine Color Urine Clarity Urine pH Ur Specific [place] Urine Protein Urine Glucose (UA) Urine Ketones Urine Blood Urine Nitrate Urine Bilirubin Urine Urobilinogen Ur Leukocyte Esterase Urine RBC (Auto) Urine Microscopic WBC Amorphous Sediment Fluid Type Spinal fluid CSF Volume 1 CSF Appearance Clear/colorless CSF WBC 1.0 CSF RBC 1.0 H CSF Total Cell Counted TEST NOT PERFORMED CSF Neutrophils 0 CSF Lymphocytes 0.0 CSF Monos/Macrophages 0 CSF Comment Colorless CSF Glucose CSF Total Protein CSF Lyme IgG Antibody CSF Lyme Disease DNA Lyme Bands Present Hepatitis A IgM Ab Hep Bs Antigen Hep B Core IgM Ab Hepatitis C Antibody HIV-1 Ab Rapid Screen HIV 1&2 Ag/Ab, 4th Gen Influenza Typ A,B (EIA) Negative for flu a/b Grp A Beta Strep Ag Negative 01/15/17 01/15/17 01/15/17 00:51 00:51 02:07 WBC RBC Hgb Hct MCV MCH MCHC RDW Plt Count MPV Neut % (Auto) Lymph % (Auto) [place] % (Auto) Eos % (Auto) Baso % (Auto) Neut # Lymph # [place] # Eos # Baso # ESR Sodium Potassium Chloride Carbon Dioxide Anion Gap BUN Creatinine Est GFR ( Amer) Est GFR (Non-Af Amer) Random Glucose Lactic Acid Calcium Total Bilirubin AST ALT Alkaline Phosphatase Total Protein Albumin Globulin Albumin/Globulin Ratio Procalcitonin Urine Color Urine Clarity Urine pH Ur Specific [place] Urine Protein Urine Glucose (UA) Urine Ketones Urine Blood Urine Nitrate Urine Bilirubin Urine Urobilinogen Ur Leukocyte Esterase Urine RBC (Auto) Urine Microscopic WBC Amorphous Sediment Fluid Type CSF Volume CSF Appearance CSF WBC CSF RBC CSF Total Cell Counted CSF Neutrophils CSF Lymphocytes CSF Monos/Macrophages CSF Comment CSF Glucose 63 CSF Total Protein 23.0 CSF Lyme IgG Antibody CSF Lyme Disease DNA Lyme Bands Present Hepatitis A IgM Ab Hep Bs Antigen Hep B Core IgM Ab Hepatitis C Antibody HIV-1 Ab Rapid Screen Non reactive HIV 1&2 Ag/Ab, 4th Gen Influenza Typ A,B (EIA) Grp A Beta Strep Ag 01/15/17 01/15/17 01/15/17 07:13 07:13 12:10 WBC 8.3 RBC 4.68 Hgb 14.3 Hct 42.7 MCV 91.2 MCH 30.6 MCHC 33.6 RDW 13.1 Plt Count 199 MPV Neut % (Auto) Lymph % (Auto) [place] % (Auto) Eos % (Auto) Baso % (Auto) Neut # Lymph # [place] # Eos # Baso # ESR Sodium 140 140 Potassium 3.9 4.2 Chloride 103 101 Carbon Dioxide 26 27 Anion Gap 15 17 BUN 10 11 Creatinine 0.9 0.9 Est GFR ( Amer) > 60 > 60 Est GFR (Non-Af Amer) > 60 > 60 Random Glucose 116 H 102 Lactic Acid Calcium 8.8 9.1 Total Bilirubin 0.5 AST 67 H ALT 90 H Alkaline Phosphatase 130 H Total Protein 8.5 H Albumin 4.4 Globulin 4.1 H Albumin/Globulin Ratio 1.1 Procalcitonin Urine Color Urine Clarity Urine pH Ur Specific [place] Urine Protein Urine Glucose (UA) Urine Ketones Urine Blood Urine Nitrate Urine Bilirubin Urine Urobilinogen Ur Leukocyte Esterase Urine RBC (Auto) Urine Microscopic WBC Amorphous Sediment Fluid Type CSF Volume CSF Appearance CSF WBC CSF RBC CSF Total Cell Counted CSF Neutrophils CSF Lymphocytes CSF Monos/Macrophages CSF Comment CSF Glucose CSF Total Protein CSF Lyme IgG Antibody CSF Lyme Disease DNA Lyme Bands Present Hepatitis A IgM Ab Hep Bs Antigen Hep B Core IgM Ab Hepatitis C Antibody HIV-1 Ab Rapid Screen HIV 1&2 Ag/Ab, 4th Gen Influenza Typ A,B (EIA) Grp A Beta Strep Ag 01/15/17 01/15/17 01/15/17 12:10 12:10 14:10 WBC RBC Hgb Hct MCV MCH MCHC RDW Plt Count MPV Neut % (Auto) Lymph % (Auto) [place] % (Auto) Eos % (Auto) Baso % (Auto) Neut # Lymph # [place] # Eos # Baso # ESR Sodium Potassium Chloride Carbon Dioxide Anion Gap BUN Creatinine Est GFR ( Amer) Est GFR (Non-Af Amer) Random Glucose Lactic Acid Calcium Total Bilirubin AST ALT Alkaline Phosphatase Total Protein Albumin Globulin Albumin/Globulin Ratio Procalcitonin 0.11 L Urine Color Yellow Urine Clarity Clear Urine pH 7.0 Ur Specific [place] 1.018 Urine Protein Negative Urine Glucose (UA) Neg Urine Ketones Negative Urine Blood Small Urine Nitrate Negative Urine Bilirubin Negative Urine Urobilinogen 0.2-1.0 Ur Leukocyte Esterase Neg Urine RBC (Auto) 3 Urine Microscopic WBC < 1 Amorphous Sediment Rare H Fluid Type CSF Volume CSF Appearance CSF WBC CSF RBC CSF Total Cell Counted CSF Neutrophils CSF Lymphocytes CSF Monos/Macrophages CSF Comment CSF Glucose CSF Total Protein CSF Lyme IgG Antibody CSF Lyme Disease DNA Lyme Bands Present Hepatitis A IgM Ab Negative Hep Bs Antigen Negative Hep B Core IgM Ab Negative Hepatitis C Antibody Negative HIV-1 Ab Rapid Screen HIV 1&2 Ag/Ab, 4th Gen Influenza Typ A,B (EIA) Grp A Beta Strep Ag 01/16/17 01/16/17 01/16/17 07:05 15:00 17:45 WBC 12.9 H D RBC 4.65 Hgb 14.1 Hct 42.2 MCV 90.7 MCH 30.4 MCHC 33.5 RDW 12.9 Plt Count 273 MPV 8.3 Neut % (Auto) 72.7 Lymph % (Auto) 16.3 L [place] % (Auto) 10.5 H Eos % (Auto) 0.1 Baso % (Auto) 0.4 Neut # 9.4 H Lymph # 2.1 [place] # 1.4 H Eos # 0.0 Baso # 0.1 ESR Sodium Potassium Chloride Carbon Dioxide Anion Gap BUN Creatinine Est GFR ( Amer) Est GFR (Non-Af Amer) Random Glucose Lactic Acid Calcium Total Bilirubin AST ALT Alkaline Phosphatase Total Protein Albumin Globulin Albumin/Globulin Ratio Procalcitonin Urine Color Urine Clarity Urine pH Ur Specific [place] Urine Protein Urine Glucose (UA) Urine Ketones Urine Blood Urine Nitrate Urine Bilirubin Urine Urobilinogen Ur Leukocyte Esterase Urine RBC (Auto) Urine Microscopic WBC Amorphous Sediment Fluid Type CSF Volume CSF Appearance CSF WBC CSF RBC CSF Total Cell Counted CSF Neutrophils CSF Lymphocytes CSF Monos/Macrophages CSF Comment CSF Glucose CSF Total Protein CSF Lyme IgG Antibody TNP CSF Lyme Disease DNA TNP Lyme Bands Present TNP Hepatitis A IgM Ab Hep Bs Antigen Hep B Core IgM Ab Hepatitis C Antibody HIV-1 Ab Rapid Screen HIV 1&2 Ag/Ab, 4th Gen Nonreactive Influenza Typ A,B (EIA) Grp A Beta Strep Ag 01/16/17 17:45 WBC RBC Hgb Hct MCV MCH MCHC RDW Plt Count MPV Neut % (Auto) Lymph % (Auto) [place] % (Auto) Eos % (Auto) Baso % (Auto) Neut # Lymph # [place] # Eos # Baso # ESR 92 H Sodium Potassium Chloride Carbon Dioxide Anion Gap BUN Creatinine Est GFR ( Amer) Est GFR (Non-Af Amer) Random Glucose Lactic Acid Calcium Total Bilirubin AST ALT Alkaline Phosphatase Total Protein Albumin Globulin Albumin/Globulin Ratio Procalcitonin Urine Color Urine Clarity Urine pH Ur Specific [place] Urine Protein Urine Glucose (UA) Urine Ketones Urine Blood Urine Nitrate Urine Bilirubin Urine Urobilinogen Ur Leukocyte Esterase Urine RBC (Auto) Urine Microscopic WBC Amorphous Sediment Fluid Type CSF Volume CSF Appearance CSF WBC CSF RBC CSF Total Cell Counted CSF Neutrophils CSF Lymphocytes CSF Monos/Macrophages CSF Comment CSF Glucose CSF Total Protein CSF Lyme IgG Antibody CSF Lyme Disease DNA Lyme Bands Present Hepatitis A IgM Ab Hep Bs Antigen Hep B Core IgM Ab Hepatitis C Antibody HIV-1 Ab Rapid Screen HIV 1&2 Ag/Ab, 4th Gen Influenza Typ A,B (EIA) Grp A Beta Strep Ag Microbiology 01/16/17 15:00 Blood-Venous Blood Culture - Preliminary NO GROWTH AFTER 24 HOURS 01/15/17 02:20 Blood-Venous Blood Culture - Preliminary NO GROWTH AFTER 48 HOURS 01/15/17 02:20 Blood-Venous Blood Culture - Preliminary NO GROWTH AFTER 48 HOURS 01/15/17 00:51 Cerebral Spinal Fluid Gram Stain - Final 01/15/17 00:51 Cerebral Spinal Fluid CSF Culture - Preliminary NO GROWTH AFTER 2 DAYS 01/16/17 07:53 Urine,Clean Catch Urine Culture - Final No Growth (<1,000 CFU/ML) 01/15/17 20:40 Blood-Venous Blood Culture - Preliminary NO GROWTH AFTER 24 HOURS 01/15/17 20:30 Blood-Venous Blood Culture - Preliminary NO GROWTH AFTER 24 HOURS 01/14/17 22:23 Throat Group A Strep Throat Culture - Final NO BETA STREP GROUP A ISOLAT Accession No. : [id number] Patient Name / ID : TASHI TUCKER / [id number] Exam Date : 01/16/2017 19:26:29 ( Approved ) Study Comment : Sex / Age : M / [id number] Creator : Laurita Overton Dictator : Laurita Overton Pitting Machine Operator : Fly Tier : Laurita Overton Approver2 : Report Date : 01/17/2017 11:50:22 My Comment : PROCEDURE: CT Chest, Abdomen and Pelvis with intravenous contrast HISTORY: fever of unknown etiology/ elevated liver enzymes COMPARISON: None. TECHNIQUE: IV dose administered: 95 mL of Omnipaque 300 Radiation dose: Total exam DLP = 701.23 mGy-cm. This CT exam was performed using one or more of the following dose reduction techniques: Automated exposure control, adjustment of the mA and/or kV according to patient size, and/or use of iterative reconstruction technique. FINDINGS: CT CHEST WITH CONTRAST: LUNGS: There is airspace consolidation at the right lower lobe suspicious for pneumonia surrounding with hazy density. Linear opacities are also seen at the lower lobes likely atelectasis or scar tissue. MEDIASTINUM: Unremarkable. Normal caliber aorta and pulmonary arterial trunk. No aortic dissection. Normal size heart. LYMPH NODES: Slightly prominent mediastinal lymph nodes. PLEURA: Trace right pleural effusion. BONES: Unremarkable. OTHER FINDINGS: None. CT ABDOMEN AND PELVIS: LIVER: Unremarkable. No gross lesion or ductal dilatation. GALLBLADDER AND BILE DUCTS: Unremarkable. PANCREAS: Unremarkable. No gross lesion or ductal dilatation. SPLEEN: Unremarkable. ADRENALS: Unremarkable. No mass. KIDNEYS AND URETERS: 2.7 centimeter cystic lesions seen at the upper pole right kidney. VASCULATURE: Unremarkable. No aortic aneurysm. BOWEL: Unremarkable. No obstruction. No gross mural thickening. APPENDIX: No evidence of appendicitis. PERITONEUM: Unremarkable. No free fluid. No free air. LYMPH NODES: Unremarkable. No enlarged lymph nodes. BLADDER: Unremarkable. REPRODUCTIVE: Mildly enlarged prostate is noted. BONES: No acute fracture. OTHER FINDINGS: None. IMPRESSION: Findings highly suspicious for right lower lobe pneumonia. Trace right pleural effusion. No evidence of acute pathology in the abdomen and pelvis. Incidental/ nonacute findings are described above. Preliminary report was submitted by virtual Radiology. Assessment and Plan (1) Febrile illness Status: Acute (2) Headache Status: Acute - Assessment and Plan (Free Text) Assessment: A/P- 41 year old male with FUO. clinically improved today. afebrile today chect CT- as per report RLL pneumonia. blood cx- neg x 2 CSF cell cell count and gram stain and culture so far negative HIV AB- negative hepatitis panel negative has High LFTs and High Globulin. influenza- negative. plan- advise to continue with IV ceftriaxone for RLL pneumonia day #2 , fevers were most likely secondary to this. advise to add zithromax as well to cover for CAP. continue with acyclovir till CSF HSV PCR is back. await the rest of the [facility] labs to return, so far all negative. await bartonella serology. await EBV serology. await quantiferon gold. await 2d echo report. all above d/w pt. at length and he verbalizes full understanding of all above. d/w hospitalist as well.
--- NOTE | 2017-01-17 11:56 | CT ---
PROCEDURE: CT Chest, Abdomen and Pelvis with intravenous contrast HISTORY: fever of unknown etiology/ elevated liver enzymes COMPARISON: None. TECHNIQUE: IV dose administered: 95 mL of Omnipaque 300 Radiation dose: Total exam DLP = 701.23 mGy-cm. This CT exam was performed using one or more of the following dose reduction techniques: Automated exposure control, adjustment of the mA and/or kV according to patient size, and/or use of iterative reconstruction technique. FINDINGS: CT CHEST WITH CONTRAST: LUNGS: There is airspace consolidation at the right lower lobe suspicious for pneumonia surrounding with hazy density. Linear opacities are also seen at the lower lobes likely atelectasis or scar tissue. MEDIASTINUM: Unremarkable. Normal caliber aorta and pulmonary arterial trunk. No aortic dissection. Normal size heart. LYMPH NODES: Slightly prominent mediastinal lymph nodes. PLEURA: Trace right pleural effusion. BONES: Unremarkable. OTHER FINDINGS: None. CT ABDOMEN AND PELVIS: LIVER: Unremarkable. No gross lesion or ductal dilatation. GALLBLADDER AND BILE DUCTS: Unremarkable. PANCREAS: Unremarkable. No gross lesion or ductal dilatation. SPLEEN: Unremarkable. ADRENALS: Unremarkable. No mass. KIDNEYS AND URETERS: 2.7 centimeter cystic lesions seen at the upper pole right kidney. VASCULATURE: Unremarkable. No aortic aneurysm. BOWEL: Unremarkable. No obstruction. No gross mural thickening. APPENDIX: No evidence of appendicitis. PERITONEUM: Unremarkable. No free fluid. No free air. LYMPH NODES: Unremarkable. No enlarged lymph nodes. BLADDER: Unremarkable. REPRODUCTIVE: Mildly enlarged prostate is noted. BONES: No acute fracture. OTHER FINDINGS: None. IMPRESSION: Findings highly suspicious for right lower lobe pneumonia. Trace right pleural effusion. No evidence of acute pathology in the abdomen and pelvis. Incidental/ nonacute findings are described above. Preliminary report was submitted by virtual Radiology.
--- NOTE | 2017-01-17 12:11 | CP.PCM.PN ---
Subjective - Date & Time of Evaluation Date of Evaluation: 01/17/17 Time of Evaluation: 11:30 - Subjective Subjective: No fever this morning last fever was yesterday afternoon has sl sore throat sl cough no SOB no CP no abd pain no diarrhea Objective - Vital Signs/Intake and Output Vital Signs (last 24 hours): Temp Pulse Resp BP Pulse Ox 98.7 F 84 18 121/75 94 L 01/17/17 08:22 01/17/17 08:22 01/17/17 08:22 01/17/17 08:22 01/17/17 08:22 - Medications Medications: Current Medications Acetaminophen (Tylenol 325mg Tab) 650 mg PO Q4 PRN PRN Reason: Fever >100.4 F Last Admin: 01/16/17 21:39 Dose: 650 mg Enoxaparin Sodium (Lovenox) 40 mg SC DAILY [facility] PRN Reason: Protocol Last Admin: 01/17/17 09:51 Dose: 40 mg Acyclovir 800 mg/ Sodium (Chloride) 250 mls @ 250 mls/hr IVPB Q8 [facility] Last Admin: 01/17/17 09:50 Dose: 250 mls/hr Ceftriaxone Sodium 1 gm/ (Sodium Chloride) 100 mls @ 100 mls/hr IVPB DAILY [facility] Last Admin: 01/16/17 20:36 Dose: 100 mls/hr Ibuprofen (Motrin Tab) 600 mg PO Q6 [facility] Last Admin: 01/17/17 10:14 Dose: 600 mg - Constitutional Appears: No Acute Distress - Head Exam Head Exam: ATRAUMATIC, NORMAL INSPECTION, NORMOCEPHALIC - Eye Exam Eye Exam: EOMI, Normal appearance, PERRL Pupil Exam: NORMAL ACCOMODATION - ENT Exam ENT Exam: Mucous Membranes Moist, Normal External Ear Exam Additional comments: sl erythematous pharyngeal mucosa - Neck Exam Neck Exam: Full ROM. absent: Lymphadenopathy, Meningismus - Respiratory Exam Respiratory Exam: Rales (right basilar rales), NORMAL BREATHING PATTERN. absent : Wheezes, Respiratory Distress - Cardiovascular Exam Cardiovascular Exam: REGULAR RHYTHM, +S1, +S2 - GI/Abdominal Exam GI & Abdominal Exam: Soft, Normal Bowel Sounds. absent: Tenderness - Extremities Exam Extremities Exam: Full ROM, Normal Capillary Refill. absent: Calf Tenderness, Pedal Edema - Back Exam Back Exam: Full ROM, NORMAL INSPECTION. absent: CVA tenderness (L), CVA tenderness (R), paraspinal tenderness, vertebral tenderness - Neurological Exam Neurological Exam: Alert, Awake, CN II-XII Intact, Normal Gait, Oriented x3 Neuro motor strength exam: Left Upper Extremity: 5, Right Upper Extremity: 5, Left Lower Extremity: 5, Right Lower Extremity: 5 - Psychiatric Exam Psychiatric exam: Normal Affect, Normal Mood - Skin Skin Exam: Dry, Normal Color, Warm Assessment and Plan (1) RLL pneumonia Status: Acute (2) Febrile illness Status: Acute (3) DVT prophylaxis Status: Acute - Assessment and Plan (Free Text) Assessment: 41 y/o gent , no significant PMH came in bec of fever and Headache. LP done showed normal CSF analysis. (1) RLL pneumonia Status: Acute CT of chest : RLL Pneumonia (2) Febrile illness Status: Acute Pt came in with fever and KEMP and no other sxs LP done : CSF negative Blood c/s: neg Urine c/s: neg Lyme ab pending Influenza : neg HIV : neg Strep : neg pt was empirically started on IV Acyclovir and Ceftriaxone CT of chest / abd /pelvis : RLL PNA (3) DVT prophylaxis Status: Acute Lovenox
--- NOTE | 2017-01-17 17:59 | CARD ---
APPROVED REPORT EXAM: Two-dimensional and M-mode echocardiogram with Doppler and color Doppler. Other Information Quality : GoodRhythm : Tachycardia INDICATION Infection:Subacute bacterial endocarditis 2D DIMENSIONS IVSd1.10 (0.7-1.1cm)LVDd4.39 (3.9-5.9cm) LVOT Diameter2.29 (1.8-2.4cm)PWd1.08 (0.7-1.1cm) IVSs1.28 (0.8-1.2cm)LVDs2.66 (2.5-4.0cm) FS (%) 39.3 %PWs1.60 (0.8-1.2cm) M-Mode DIMENSIONS Left Atrium (MM)3.47 (2.5-4.0cm)IVSd1.15 (0.7-1.1cm) Aortic Root3.35 (2.2-3.7cm)LVDd5.09 (4.0-5.6cm) Aortic Cusp Exc.2.44 (1.5-2.0cm)PWd0.97 (0.7-1.1cm) IVSs1.91 cmFS (%) 48 % LVDs2.65 (2.0-3.8cm)PWs1.56 cm Mitral Valve E/A ratio0.0 TDI E/Lateral E'0.0E/Medial E'0.0 Pulmonary Valve PV Peak [id number]/s LEFT VENTRICLE The left ventricle is normal size. There is normal left ventricular wall thickness. The left ventricular function is normal. The left ventricular ejection fraction is 60% There is normal LV segmental wall motion. The left ventricular diastolic function is normal. No left ventricle thrombus noted on this study. There is no ventricular septal defect visualized. There is no left ventricular aneurysm. There is no mass noted in the left ventricle. RIGHT VENTRICLE The right ventricle is normal size. There is normal right ventricular wall thickness. The right ventricular systolic function is normal. ATRIA The left atrium size is normal. The right atrium size is normal. The interatrial septum is intact with no evidence for an atrial septal defect. AORTIC VALVE The aortic valve is normal in structure and function. No aortic regurgitation is present. There is no aortic valvular stenosis. There is no aortic valvular vegetation. MITRAL VALVE The mitral valve is normal in structure and function. There is no evidence of mitral valve prolapse. There is no mitral valve stenosis. There is no mitral valve regurgitation noted. TRICUSPID VALVE The tricuspid valve is normal in structure and function. There is no tricuspid valve regurgitation noted. There is no tricuspid valve prolapse or vegetation. There is no tricuspid valve stenosis. PULMONIC VALVE The pulmonary valve is normal in structure and function. There is no pulmonic valvular regurgitation. There is no pulmonic valvular stenosis. GREAT VESSELS The aortic root is normal in size. The ascending aorta is normal in size. The IVC is normal in size and collapses >50% with inspiration. PERICARDIAL EFFUSION The pericardium appears normal. There is no pleural effusion. <Conclusion> Normal Echocardiogram
[2017-01-17] MEDS: Azithromycin 500 MG in Sodium Chloride 0.9% 250 ML IVPB SCH (18:18)
--- NOTE | 2017-01-17 19:03 | CARD ---
APPROVED REPORT EKG Measurement Heart [id number] <Conclusion> Normal sinus rhythm Normal ECG
[2017-01-18 07:46] VITALS: BP 99/63; PULSE 63; RESP 18; TEMP 97.6; O2SAT 96
[2017-01-18] MEDS: Enoxaparin 40 mg Syringe SC SCH (08:32)
[2017-01-18] MEDS: Azithromycin 500 MG in Sodium Chloride 0.9% 250 ML IVPB SCH (10:08)
[2017-01-18 10:50] LABS: HSV 2 DNA Not Detected (Not Detected); SPECIMEN SOURCE CSF
--- NOTE | 2017-01-18 12:54 | CP.PCM.DIS ---
Provider - Provider Date of Admission: 01/16/17 10:00 Attending physician: Peace Gagnon DO Consults: ID: Dr Deleon Time Spent in preparation of Discharge (in minutes): 25 Diagnosis - Discharge Diagnosis (1) RLL pneumonia Status: Acute (2) Febrile illness Status: Acute (3) DVT prophylaxis Status: Acute Hospital Course - Lab Results Lab Results: Micro Results 01/16/17 17:45 Blood-Venous Blood Culture - Preliminary NO GROWTH AFTER 24 HOURS 01/16/17 15:00 Blood-Venous Blood Culture - Preliminary NO GROWTH AFTER 24 HOURS Most Recent Lab Values WBC 12.9 K/uL (4.8-10.8) H D 01/16/17 07:05 RBC 4.65 Mil/uL (4.40-5.90) 01/16/17 07:05 Hgb 14.1 g/dL (12.0-18.0) 01/16/17 07:05 Hct 42.2 % (35.0-51.0) 01/16/17 07:05 MCV 90.7 fl (80.0-94.0) 01/16/17 07:05 MCH 30.4 pg (27.0-31.0) 01/16/17 07:05 MCHC 33.5 g/dL (33.0-37.0) 01/16/17 07:05 RDW 12.9 % (11.5-14.5) 01/16/17 07:05 Plt Count 273 K/uL (130-400) 01/16/17 07:05 MPV 8.3 fl (7.2-11.7) 01/16/17 07:05 Neut % (Auto) 72.7 % (50.0-75.0) 01/16/17 07:05 Lymph % (Auto) 16.3 % (20.0-40.0) L 01/16/17 07:05 [place] % (Auto) 10.5 % (0.0-10.0) H 01/16/17 07:05 Eos % (Auto) 0.1 % (0.0-4.0) 01/16/17 07:05 Baso % (Auto) 0.4 % (0.0-2.0) 01/16/17 07:05 Neut # 9.4 K/uL (1.8-7.0) H 01/16/17 07:05 Lymph # 2.1 K/uL (1.0-4.3) 01/16/17 07:05 [place] # 1.4 K/uL (0.0-0.8) H 01/16/17 07:05 Eos # 0.0 K/uL (0.0-0.7) 01/16/17 07:05 Baso # 0.1 K/uL (0.0-0.2) 01/16/17 07:05 ESR 92 mm/hr (0-15) H 01/16/17 17:45 Sodium 140 mmol/l (132-148) 01/15/17 12:10 Potassium 4.2 MMOL/L (3.6-5.0) 01/15/17 12:10 Chloride 101 mmol/L (98-107) 01/15/17 12:10 Carbon Dioxide 27 mmol/L (22-30) 01/15/17 12:10 Anion Gap 17 (10-20) 01/15/17 12:10 BUN 11 mg/dl (9-20) 01/15/17 12:10 Creatinine 0.9 mg/dL (0.8-1.5) 01/15/17 12:10 Est GFR ( Amer) > 60 01/15/17 12:10 Est GFR (Non-Af Amer) > 60 01/15/17 12:10 Random Glucose 102 mg/dL (75-110) 01/15/17 12:10 Lactic Acid 1.0 MMOL/L (0.7-2.1) 01/14/17 21:52 Calcium 9.1 mg/dL (8.4-10.2) 01/15/17 12:10 Total Bilirubin 0.5 mg/dl (0.2-1.3) 01/15/17 12:10 AST 67 U/L (17-59) H 01/15/17 12:10 ALT 90 U/L (21-72) H 01/15/17 12:10 Alkaline Phosphatase 130 U/L (38-126) H 01/15/17 12:10 Total Protein 8.5 G/DL (6.3-8.2) H 01/15/17 12:10 Albumin 4.4 g/dL (3.5-5.0) 01/15/17 12:10 Globulin 4.1 gm/dL (2.2-3.9) H 01/15/17 12:10 Albumin/Globulin Ratio 1.1 (1.0-2.1) 01/15/17 12:10 Procalcitonin 0.11 NG/ML (0.19-0.49) L 01/15/17 12:10 Urine Color Yellow (YELLOW) 01/15/17 14:10 Urine Clarity Clear (Clear) 01/15/17 14:10 Urine pH 7.0 (5.0-8.0) 01/15/17 14:10 Ur Specific [place] 1.018 (1.003-1.030) 01/15/17 14:10 Urine Protein Negative mg/dL (NEGATIVE) 01/15/17 14:10 Urine Glucose (UA) Neg mg/dL (Normal) 01/15/17 14:10 Urine Ketones Negative mg/dL (NEGATIVE) 01/15/17 14:10 Urine Blood Small (NEGATIVE) 01/15/17 14:10 Urine Nitrate Negative (NEGATIVE) 01/15/17 14:10 Urine Bilirubin Negative (NEGATIVE) 01/15/17 14:10 Urine Urobilinogen 0.2-1.0 mg/dL (0.2-1.0) 01/15/17 14:10 Ur Leukocyte Esterase Neg [place]/uL (Negative) 01/15/17 14:10 Urine RBC (Auto) 3 /hpf (0-3) 01/15/17 14:10 Urine Microscopic WBC < 1 /hpf (0-5) 01/15/17 14:10 Amorphous Sediment Rare /ul (<OCC) H 01/15/17 14:10 Fluid Type Spinal fluid 01/15/17 00:51 CSF Volume 1 mL (0-1) 01/15/17 00:51 CSF Appearance Clear/colorless (CLEAR) 01/15/17 00:51 CSF WBC 1.0 /mm3 (0.0-5.0) 01/15/17 00:51 CSF RBC 1.0 /mm3 (0.0-0.0) H 01/15/17 00:51 CSF Total Cell Counted TEST NOT PERFORMED 01/15/17 00:51 CSF Neutrophils 0 % (0-0) 01/15/17 00:51 CSF Lymphocytes 0.0 % (0-0) 01/15/17 00:51 CSF Monos/Macrophages 0 % (0-0) 01/15/17 00:51 CSF Comment Colorless 01/15/17 00:51 CSF Glucose 63 mg/dL (40-70) 01/15/17 00:51 CSF Total Protein 23.0 mg/dL (12-60) 01/15/17 00:51 CSF Lyme IgG Antibody TNP 01/16/17 17:45 CSF Lyme Disease DNA TNP 01/16/17 17:45 RPR Nonreactive (NONREACTIVE) 01/16/17 17:45 Lyme Bands Present TNP 01/16/17 17:45 Hepatitis A IgM Ab Negative (NEGATIVE) 01/15/17 12:10 Hep Bs Antigen Negative (NEGATIVE) 01/15/17 12:10 Hep B Core IgM Ab Negative (NEGATIVE) 01/15/17 12:10 Hepatitis C Antibody Negative (NEGATIVE) 01/15/17 12:10 HSV Source Description Csf 01/15/17 02:07 HSV I DNA PCR Not detected (Not Detected) 01/15/17 02:07 HSV II DNA PCR Not detected (Not Detected) 01/15/17 02:07 HIV-1 Ab Rapid Screen Non reactive (NON REAC) 01/15/17 02:07 HIV 1&2 Ag/Ab, 4th Gen Nonreactive (Nonreactive) 01/16/17 15:00 Influenza Typ A,B (EIA) Negative for flu a/b (NEGATIVE) 01/14/17 22:23 Grp A Beta Strep Ag Negative (NEGATIVE) 01/14/17 22:23 - Hospital Course Hospital Course: 41 y/o gent , no significant PMH came in bec of fever and Headache. LP done showed normal CSF analysis. Fever work up was done and Pt was empirically started on IV Acyclovir, and Ceftriaxone. ID was consulted. CT of the chest done showed RLL Pneumonia. (1) RLL pneumonia Status: Acute CT of chest : RLL Pneumonia Pt received IV Ceftriaxone and Azithro (2) Febrile illness Status: Acute Pt came in with fever and KEMP and no other sxs then started having some cough At present, pt is afebrile LP done : CSF negative Blood c/s: neg Urine c/s: neg Lyme ab pending Influenza : neg HIV : neg Strep : neg pt was empirically started on IV Acyclovir and Ceftriaxone then Azithro added CT of chest / abd /pelvis : RLL PNA (3) DVT prophylaxis Status: Acute Lovenox Discharge Exam - Head Exam Head Exam: ATRAUMATIC, NORMAL INSPECTION, NORMOCEPHALIC - Eye Exam Eye Exam: EOMI, Normal appearance, PERRL Pupil Exam: NORMAL ACCOMODATION - ENT Exam ENT Exam: Mucous Membranes Moist, Normal External Ear Exam - Neck Exam Neck exam: Full Rom Additional comments: no nuchal rigidity - Respiratory Exam Respiratory Exam: Rales, NORMAL BREATHING PATTERN. absent: Wheezes, Respiratory Distress - Cardiovascular Exam Cardiovascular Exam: REGULAR RHYTHM, +S1, +S2 - GI/Abdominal Exam GI & Abdominal Exam: Normal Bowel Sounds, Soft. absent: Tenderness - Extremities Exam Extremities exam: full ROM, normal capillary refill, pedal pulses present - Back Exam Back exam: FULL ROM, NORMAL INSPECTION. absent: CVA tenderness (L), CVA tenderness (R), paraspinal tenderness, vertebral tenderness - Neurological Exam Neurological exam: Alert, CN II-XII Intact, Normal Gait, Oriented x3, Reflexes Normal - Psychiatric Exam Psychiatric exam: Normal Affect, Normal Mood - Skin Skin Exam: Dry, Normal Color, Warm Discharge Plan - Discharge Medications Prescriptions: Azithromycin [Zithromax Tri-Raudel] 500 mg PO DAILY #8 tablet Cefdinir [Omnicef] 300 mg PO BID #20 cap - Follow Up Plan Condition: GOOD Disposition: HOME/ ROUTINE Instructions: Fever in Adults (GEN), Pneumonia (DC) Additional Instructions: Pls call [facility] FOR APPT FF UP PENDING LABS AT THE CLINIC Referrals: [facility] [place] [Outside]
== END 2017-01-18 14:52 | disposition home or self-care (01) | DRG 90 ==
LOC: H.ER 19:57 → H.ERHOLD 01-15 03:21 → H.MEDSURG1 01-15 04:33 → OBSVTOIN 01-16 10:00
PROVIDERS: ADMIT Student in an Organized Health Care Education/Training Program; ATTEND Student in an Organized Health Care Education/Training Program
PROC: 009U3ZX Drainage of Spinal Canal, Percutaneous Approach, Diagnostic (ICD-10-PCS; principal; 2017-01-16)
PROC: 3E0234Z Introduction of Serum, Toxoid and Vaccine into Muscle, Percutaneous Approach (ICD-10-PCS; 2017-01-16)
DX: J18.9 Pneumonia, unspecified organism (principal); R51 Headache; Z23 Encounter for immunization

== ENCOUNTER 2017-04-27 16:09 | Emergency (ER) | payer SELFPAY ==
[2017-04-27 16:16] VITALS: BP 137/70; PULSE 69; RESP 18; TEMP 96.9; O2SAT 99
--- NOTE | 2017-04-27 17:04 | ED PDOC ---
HPI: Eye Injury/Pain Time Seen by Provider: 04/27/17 16:27 Chief Complaint (Nursing): Eye Problem Chief Complaint (Provider): Lt eye pain History Per: Patient History/Exam Limitations: no limitations Onset/Duration Of Symptoms: Days (1 week) Current Symptoms Are (Timing): Still Present Injury To Eye?: No Wears Contact Lens?: No Associated Symptoms: Itching, Discharge From Eye Additional History Per: Patient Additional Complaint(s): The patient is a 42yo male, no past medical history, presents to the ED for evaluation of left eye irritation with associated redness and discharge for the past week. Patient reports associated itching sensation but denies any foreign body sensation. Patient denies associated fever or chills. He currently offers no additional medical complaints. Past Medical History Reviewed: Historical Data, Nursing Documentation, Vital Signs Vital Signs: Last Vital Signs Temp 96.9 F L 04/27/17 16:14 Pulse 69 04/27/17 16:14 Resp 18 04/27/17 16:14 BP 137/70 04/27/17 16:14 Pulse Ox 99 04/27/17 16:14 - Medical History PMH: No Chronic Diseases Denies: HIV, Chronic Kidney Disease - Surgical History Surgical History: Appendectomy - Family History Family History: States: Unknown Family Hx - Home Medications Home Medications: Ambulatory Orders Medication Instructions Recorded Azithromycin [Zithromax Tri-Raudel] 500 mg PO DAILY #8 tablet 01/18/17 Cefdinir [Omnicef] 300 mg PO BID #20 cap 01/18/17 Polymyxin/Trimethoprim Sulfate 1 drop .ROUTE Q6H 10 Days 04/27/17 [Polytrim Ophth Soln] - Allergies Allergies/Adverse Reactions: Allergies Allergy/AdvReac Type Severity Reaction Status Date / Time No Known Allergies Allergy Verified 01/14/17 20:30 Review of Systems ROS Statement: Except As Marked, All Systems Reviewed And Found Negative Constitutional: Negative for: Fever, Chills Eyes: Positive for: Pain, Redness Physical Exam - Reviewed Nursing Documentation Reviewed: Yes Vital Signs Reviewed: Yes - Physical Exam Appears: Positive for: Well, Non-toxic, No Acute Distress Head Exam: Positive for: ATRAUMATIC, NORMAL INSPECTION, NORMOCEPHALIC Skin: Positive for: Normal Color, Warm, DRY Eye Exam: Positive for: EOMI, PERRL, Conjunctival injection Neck: Positive for: Normal, Supple Respiratory: Negative for: Respiratory Distress Neurologic/Psych: Positive for: Alert, Oriented. Negative for: Motor/Sensory Deficits - ECG O2 Sat by Pulse Oximetry: 99 (RA) Pulse Ox Interpretation: Normal Medical Decision Making Medical Decision Making: Time: 1640 Impression: Conjunctivitis Plan: -- Patient to be given antibiotic drops for his eye; patient informed to f/u with his PCP and to return to ED if symptoms worsen or new symptoms arise. Patient expresses understanding and is agreeable with plan. Scribe Attestation: Documented by Alycia Patterson acting as a scribe for SHABNAM Larsen Provider Attestation: All medical record entries made by the Scribe were at my direction and personally dictated by me. I have reviewed the chart and agree that the record accurately reflects my personal performance of the history, physical exam, medical decision making, and the department course for this patient. I have also personally directed, reviewed, and agree with the discharge instructions and disposition. Disposition - Clinical Impression Clinical Impression: Conjunctivitis - Disposition Disposition: Routine/Home Disposition Time: 16:40 Condition: STABLE Prescriptions: Polymyxin/Trimethoprim Sulfate [Polytrim Ophth Soln] 1 drop .ROUTE Q6H 10 Days Instructions: Conjunctivitis (ED) Forms: [facility] (Albanian) Print Language: VIETNAMESE
== END 2017-04-27 17:05 | disposition home or self-care (01) ==
LOC: H.ER 16:09
DX: H10.9 Unspecified conjunctivitis (principal)

== ENCOUNTER 2017-12-12 21:01 | Emergency (ER) | payer SELFPAY ==
[2017-12-12 21:54] VITALS: BP 129/78; PULSE 77; RESP 18; TEMP 98; O2SAT 98
[2017-12-12] MEDS ORDERED: Naproxen 500 MG TAB PO ONE ×2 (22:15→22:40)
--- NOTE | 2017-12-12 23:08 | ED PDOC ---
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 states for the past 7 days he's had atraumatic, non-radiating lower back pain. Reports pain is worse with movement. Further states that he does normally sleep on his stomach. Pt. states he has not taken any medications to help relieve symptoms. Denies abd pain, N/V, hematuria, dysuria, urinary or stool incontinence, trauma, numbness, tingling, saddle paresthesias. Past Medical History Reviewed: Historical Data, Nursing Documentation, Vital Signs Vital Signs: Last Vital Signs Temp 98.0 F 12/12/17 21:51 Pulse 77 12/12/17 21:51 Resp 18 12/12/17 21:51 BP 129/78 12/12/17 21:51 Pulse Ox 98 12/12/17 21:51 - Medical History PMH: Denies: HIV, Chronic Kidney Disease - Surgical History Surgical History: Appendectomy - Family History Family History: States: No Known Family Hx - Home Medications Home Medications: Ambulatory Orders Medication Instructions Recorded Azithromycin [Zithromax Tri-Raudel] 500 mg PO DAILY #8 tablet 01/18/17 Cefdinir [Omnicef] 300 mg PO BID #20 cap 01/18/17 Polymyxin/Trimethoprim Sulfate 1 drop .ROUTE Q6H 10 Days bottle 04/27/17 [Polytrim Ophth Soln] Cyclobenzaprine [Cyclobenzaprine 10 mg PO Q8 PRN #20 tab 12/12/17 HCl] Naproxen [Naprosyn] 500 mg PO BID PRN #30 tab 12/12/17 - Allergies Allergies/Adverse Reactions: Allergies Allergy/AdvReac Type Severity Reaction Status Date / Time No Known Allergies Allergy Verified 01/14/17 20:30 Review of Systems ROS Statement: Except As Marked, All Systems Reviewed And Found Negative Musculoskeletal: Positive for: Back Pain Physical Exam - Physical Exam Appears: Positive for: Well, Non-toxic, No Acute Distress Skin: Positive for: Normal Color, Warm. Negative for: Rash Eye Exam: Positive for: Normal appearance Gastrointestinal/Abdominal: Positive for: Normal Exam, Soft. Negative for: Tenderness Back: Positive for: Normal Inspection, Muscle Spasm (b/l paralumbar area). Negative for: L CVA Tenderness, R CVA Tenderness, Vertebral Tenderness Extremity: Positive for: Normal ROM, Other (SLR negative b/l) Neurologic/Psych: Positive for: Alert, Oriented - ECG O2 Sat by Pulse Oximetry: 98 - Progress ED Course And Treament: Naproxen 500mg PO, flexeril 10mg PO ordered. On re-evaluation, pt. reports good relief of pain. Advised to f/u with [facility] for further evaluation. Disposition - Clinical Impression Clinical Impression: Low back pain - Patient ED Disposition Is Patient to be Admitted: No - Disposition Referrals: [facility] [Outside] [facility] [Outside] Disposition: Routine/Home Disposition Time: 22:15 Condition: STABLE Additional Instructions: [facility]. Return to ED immediately if symptoms worsen. Prescriptions: Cyclobenzaprine [Cyclobenzaprine HCl] 10 mg PO Q8 PRN #20 tab PRN Reason: Muscle Spasm Naproxen [Naprosyn] 500 mg PO BID PRN #30 tab PRN Reason: Pain Instructions: Low Back Pain (DC) Forms: [facility] (Samoan) Print Language: MOSOTHO
== END 2017-12-12 22:45 | disposition home or self-care (01) ==
LOC: H.ER 21:01
DX: M54.5 Low back pain (principal)

== ENCOUNTER 2018-07-18 14:21 | Emergency (ER) | payer SELFPAY ==
[2018-07-18 14:30] VITALS: BP 107/67; PULSE 63; RESP 16; TEMP 98.1; O2SAT 99
[2018-07-18] MEDS ORDERED: Polymyxin/Trimethoprim Ophth Soln OU STA (14:50)
[2018-07-18] MEDS ORDERED: Tobramycin 0.3% OPHT SOLN OU ONE (15:01)
--- NOTE | 2018-07-18 15:31 | ED PDOC ---
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 Patient states that he has difficulty swallowing, a dry cough, and 2x days ago, he started having eye itching, redness, and crusting. Patient reports having sick contacts (his , who has throat pain), and has taken ibuprofen (200 mg) until last night with no relief of symptoms. Otherwise: (-)fevers, (-) chills, (-) nausea, (-) vomiting, (-) diarrhea, (-) chest pain, (-) recent travel, (-) changes in vision, (-) dizziness, (-) headaches,(-) ear pain, (-) history of throat infections, (-) wearing glasses or contacts. PMD: [facility] Past Medical History Reviewed: Historical Data, Nursing Documentation, Vital Signs Vital Signs: Last Vital Signs Temp 98.1 F 07/18/18 14:28 Pulse 63 07/18/18 14:28 Resp 16 07/18/18 14:28 BP 107/67 07/18/18 14:28 Pulse Ox 99 07/18/18 14:28 - Medical History PMH: No Chronic Diseases - Surgical History Surgical History: Appendectomy - Family History Family History: States: No Known Family Hx - Social History Current smoker - smoking cessation education provided: No Alcohol: None Drugs: Denies - Home Medications Home Medications: Ambulatory Orders Medication Instructions Recorded Cefdinir [Omnicef] 300 mg PO BID #20 cap 01/18/17 RX: Azithromycin [Zithromax 500 mg PO DAILY #8 tablet 01/18/17 Tri-Raudel] Polymyxin/Trimethoprim Sulfate 1 drop .ROUTE Q6H 10 Days bottle 04/27/17 [Polytrim Ophth Soln] Cyclobenzaprine [Cyclobenzaprine 10 mg PO Q8 PRN #20 tab 12/12/17 HCl] RX: Naproxen [Naprosyn] 500 mg PO BID PRN #30 tab 12/12/17 RX: Amoxicillin 875 mg PO BID #14 tablet 07/18/18 RX: Naproxen 500 mg PO BID PRN #20 tab 07/18/18 RX: Tobramycin 0.3% [Tobrex 0.3% 1 drop OU QID #1 bottle 07/18/18 Ophth Soln] - Allergies Allergies/Adverse Reactions: Allergies Allergy/AdvReac Type Severity Reaction Status Date / Time No Known Allergies Allergy Verified 01/14/17 20:30 Review of Systems ROS Statement: Except As Marked, All Systems Reviewed And Found Negative Constitutional: Negative for: Fever, Chills Eyes: Positive for: Redness (itching, crusting). Negative for: Vision Change ENT: Positive for: Throat Pain Cardiovascular: Negative for: Chest Pain Respiratory: Positive for: Cough (dry) Gastrointestinal: Negative for: Nausea, Vomiting, Diarrhea Neurological: Negative for: Headache, Dizziness Physical Exam - Reviewed Nursing Documentation Reviewed: Yes Vital Signs Reviewed: Yes - Physical Exam Comments: GENERAL APPEARANCE: Patient is awake, alert, oriented x 3, resting comfortably, in no acute distress. HEAD: (-) facial swelling and erythema, (-) facial blisters (-) facial bone tenderness VISUAL ACUITIES: Left eye: 20/30; Right eye: 20/ 25; Bilateral: 20/15. EYES: (+) mucous discharge to bilateral medial canthus (-) periorbital erythema, (-) periorbital edema. LIDS & LASHES: Normal (-) crusting. PUPILS: Pupils equal and reactive to light. EOM's: Intact and painless. LID EVERSION: (-) foreign body. CONJUNCTIVAE: Bilateral conjunctival injection CORNEA: (-) foreign body ANTERIOR CHAMBER: (-) hyphema, (-) chemosis. THROAT: Clear, uvula midline (+)pharyngeal erythema, (+) left sided tonsilar exudate (+) 1+ hypertrophy LUNGS: clear to auscultation bilaterally, (-) wheezing, (-) rhonchi, (-) rales. Respirations even and nonlabored. CARDIAC: RRR EARS: TMs nonbulging and nonerythematous. Ear canals normal. NARES: Patent (-) rhinorrhea NECK: Supple, FROM (-) lymphadenopathy (-) rigidity NEURO: Mental status as above. (-) facial asymmetry (-) aphasia. Gait: steady. Speech: clear. - ECG O2 Sat by Pulse Oximetry: 99 (RA) Pulse Ox Interpretation: Normal Medical Decision Making Medical Decision Makin:30 Clinical impression: 43 year old male with conjunctivitis and tonsillitis. Initial plan: -amoxil 500 mg Cap 500 mg PO -throat culture -rapid strep -visual acuity -reevaluation 1635 Rapid Strep: Negative On re-evaluation, patient reports improvement of symptoms. On exam, patient remains AAOx3, in no acute distress. Lungs clear to auscultation, cardiac RRR, repeat neuro exam shows no focal findings. Vitals stable. Lab /Diagnostic results d/w the patient in great detail. Diagnosis of tonsi llitis, conjunctivitis d/w the patient. Based on history, exam and diagnostic results, plan will be for outpatient follow up with clinic. Patient instructed to follow-up with pmd / referral provided / the clinic in 1- 2 days without fail. Advised to take medication as prescribed. Return to the emergency room at any time for any new or worsening symptoms. Patient states he fully agrees with and understands discharge instructions. States that he agrees with the plan and disposition. Verbalized and repeated discharge instructions and plan. I have given the patient opportunity to ask any additional questions. Scribe Attestation: Documented by Mamie Bustillos, acting as a scribe for Mamie Betancur Provider Scribe Attestation: All medical record entries made by the Scribe were at my direction and personally dictated by me. I have reviewed the chart and agree that the record accurately reflects my personal performance of the history, physical exam, medical decision making, and the department course for this patient. I have also personally directed, reviewed, and agree with the discharge instructions and disposition. Disposition - Clinical Impression Clinical Impression: Conjunctivitis, Tonsillitis with exudate, Throat pain in adult - Patient ED Disposition Is Patient to be Admitted: No Counseled Patient/Family Regarding: Studies Performed, Diagnosis, Need For Followup, Rx Given - Disposition Referrals: [facility] [Outside] Disposition: Routine/Home Disposition Time: 16:35 Condition: STABLE Additional Instructions: La atencin mdica de emergencia que recibi hoy se dirigi a antony sntomas agudos. Si le recetaron algn medicamento, llnelo y tmelo segn las indicaciones. Los sntomas pueden tardar varios anderson en resolverse. Regrese al Departamento de Emergencias si antony sntomas empeoran, no mejoran o si tiene otros problemas. Comunquese con baugh mdico dentro de 2 anderson para lesly nueva evaluacin y jakub un seguimiento o llame a pk de los mdicos / clnicas a los que arambula sido referido y que figuran en el formulario de Informacin de visita al paciente que se incluye en baugh paquete de cesar. Lleve con usted a baugh consulta de seguimiento toda la documentacin que recibi del cesar junto con los medicamentos que est tomando. Nuestro tratamiento no puede reemplazar la atencin mdica continua por parte de un proveedor de atencin primaria (PCP) fuera del departamento de emergencias. Prescriptions: RX: Amoxicillin 875 mg PO BID #14 tablet RX: Naproxen 500 mg PO BID PRN #20 tab PRN Reason: Pain, Moderate (4-7) RX: Tobramycin 0.3% [Tobrex 0.3% Oph Soln] 1 drop OU QID #1 bottle Instructions: Sore Throat in Adults, Conjunctivitis ([place]), How to Use Eye Drops Forms: [employer] (Uzbek) Print Language: CZECH - PODaniel Present On Arrival: None Results - Lab Results Lab Results: 07/18/18 15:01 Grp A Beta Strep Ag Negative
== END 2018-07-18 16:45 | disposition home or self-care (01) ==
LOC: H.ER 14:21
DX: H10.9 Unspecified conjunctivitis (principal); J03.90 Acute tonsillitis, unspecified; J02.9 Acute pharyngitis, unspecified

== ENCOUNTER 2019-01-08 18:40 | Emergency (ER) | payer SELFPAY ==
[2019-01-08 18:47] VITALS: BP 112/68; PULSE 82; RESP 16; TEMP 98.6; O2SAT 97
[2019-01-08] MEDS ORDERED: Albuterol 0.083% Inhal Sol (2.5 mg/3 mL) UD INH STA (19:01)
--- NOTE | 2019-01-08 19:03 | ED PDOC ---
HPI: Influenza Time Seen by Provider: 01/08/19 18:50 Chief Complaint: Cough, Cold, Congestion Chief Complaint (Provider): Cough, Cold, Congestion History Per: Patient, Answering Service Agent (Dharmesh Vokalani # [id number]) Exam Limitations: intoxication Onset/Duration Of Symptoms: Days (x2) Additional complaint(s):: Patient is a 43 y/o male with no significant PMHx who presents to the ED for evaluation of cough, productive of white phlegm, and nasal congestion for the past two days. In addition, patient complains of right lower back pain, throat pain, and difficulty breathing when he coughs. Patient reports his son was just recently diagnosed with the flu in this ED. Patient denies fever, taking any medication for relief, and recent travel. PCP: Dr. Chavira Past Medical History Reviewed: Historical Data, Nursing Documentation, Vital Signs Vital Signs: Last Vital Signs Temp 98.6 F 01/08/19 18:47 Pulse 82 01/08/19 18:47 Resp 16 01/08/19 18:47 BP 112/68 01/08/19 18:47 Pulse Ox 97 01/08/19 18:47 Primary Care Provider: Doctor,Conversion - Medical History PMH: No Chronic Diseases Denies: Asthma, HIV, Chronic Kidney Disease - Surgical History Surgical History: Appendectomy - Family History Family History: States: Unknown Family Hx - Home Medications Home Medications: Ambulatory Orders Medication Instructions Recorded Azithromycin [Zithromax Tri-Raudel] 500 mg PO DAILY #8 tablet 01/18/17 Cefdinir [Omnicef] 300 mg PO BID #20 cap 01/18/17 Polymyxin/Trimethoprim Sulfate 1 drop .ROUTE Q6H 10 Days bottle 04/27/17 [Polytrim Ophth Soln] Cyclobenzaprine [Cyclobenzaprine 10 mg PO Q8 PRN #20 tab 12/12/17 HCl] Naproxen [Naprosyn] 500 mg PO BID PRN #30 tab 12/12/17 Amoxicillin 875 mg PO BID #14 tablet 07/18/18 Naproxen 500 mg PO BID PRN #20 tab 07/18/18 Tobramycin 0.3% [Tobrex 0.3% Ophth 1 drop OU QID #1 bottle 07/18/18 Soln] Albuterol HFA [Ventolin HFA 90 1 puff IH Q6 PRN #1 inhaler 01/08/19 mcg/actuation (8 g)] Azithromycin [Zithromax] 250 mg PO DAILY #6 tab 01/08/19 Benzonatate [Tessalon Perles] 100 mg PO TID PRN #12 tab 01/08/19 predniSONE [predniSONE Tab] 40 mg PO DAILY 5 Days #10 tab 01/08/19 - Allergies Allergies/Adverse Reactions: Allergies Allergy/AdvReac Type Severity Reaction Status Date / Time No Known Allergies Allergy Verified 01/08/19 18:45 Review of Systems ROS Statement: Except As Marked, All Systems Reviewed And Found Negative Constitutional: Negative for: Fever ENT: Positive for: Nose Congestion, Throat Pain Respiratory: Positive for: Cough (with white phlegm) Musculoskeletal: Positive for: Back Pain (lower right when coughing) Physical Exam - Reviewed Nursing Documentation Reviewed: Yes Vital Signs Reviewed: Yes - Physical Exam Comments: GENERAL APPEARANCE: Patient is awake, alert, oriented x 3, in mild obvious discomfort. SKIN: Warm, dry; (-) cyanosis. EYES: (-) conjunctival pallor. ENMT: Mucous membranes moist. Airway patent: (-) stridor. Pharynx: (+) erythema posteriorly, (-) swelling, (-) exudate. NECK: (-) tenderness, (-) stiffness, (-) lymphadenopathy. (-)menigismus CHEST AND RESPIRATORY: (-) rhonchi, (-) rales, (-) wheezes, (-) pleural rub; breath sounds equal bilaterally, deep inspiration causes cough productive of white phelgm HEART AND CARDIOVASCULAR: (-) irregularity; (-) murmur, (-) gallop. ABDOMEN AND GI: Soft; (-) tenderness. EXTREMITIES: (-) deformity; (-) edema. NEURO AND PSYCH: Mental status as above. Cranial nerves grossly intact; strength symmetric. Medical Decision Making Medical Decision Making: Time: 1900 Impression: Flu vs Bronchitis Plan: CXR Albuterol 2 .5 mg INH Motrin 600 mg PO Peak Flow Pre/Post Tx. Pre/Post Treatment Influenza A B Rapid Strep Group A Antigen Time: 2029 CXR shows no active diseases. No changes from 05/09/2018. Time: 2044 [facility] # [id number] Patient states he feels better. Peak flow has improved, lungs are clear, no respiratory distress CXR shows no sign of PNA. Test for flu and strep came back negative. Patient most likely has flu despite test coming back negative considering his son has the flu. Furthermore, patient's symptoms indicate possible bronchitis. Patient advised to continue taking Ibuprofen at home every six to eight hours and will give Rx for symptoms and treatment. Patient informed to continually wash hands since the flu is contagious. Patient requesting work note. Discussed results, diagnosis, treatment, return precautions and f/u with pt who is understanding, in agreement and stable for dc Scribe Attestation: Documented by Tani Conde, acting as a scribe for Yahir Mejia PA-C. Provider Scribe Attestation: All medical record entries made by the Scribe were at my direction and personally dictated by me. I have reviewed the chart and agree that the record accurately reflects my personal performance of the history, physical exam, medical decision making, and the department course for this patient. I have also personally directed, reviewed, and agree with the discharge instructions and disposition. - ECG O2 Sat by Pulse Oximetry: 97 Disposition - Clinical Impression Clinical Impression: Bronchitis - Patient ED Disposition Is Patient to be Admitted: No Counseled Patient/Family Regarding: Studies Performed, Diagnosis, Need For Followup, Rx Given - Disposition Referrals: your, doctor [Other] [facility] [place] [Outside] Disposition: Routine/Home Disposition Time: 21:00 Condition: IMPROVED Additional Instructions: Pramod por dejarnos cuidar de ti hoy. La atencin mdica de emergencia que recibi hoy se dirigi a antony sntomas agudos. Si le recetaron algn medicamento, llnelo y tmelo segn las indicaciones. Descansa, y erika muchos lquidos. Alterne entre Tylenol e Ibuprofeno para la fiebre y el dolor. Los sntomas pueden tardar varios anderson en resolverse. Regrese al Departamento de Emergencias si antony sntomas empeoran, no mejoran o si tiene otros problemas. Comunquese con baugh mdico dentro de 2 anderson para lesly nueva evaluacin y jakub un seguimiento o llame a pk de los mdicos / clnicas a los que arambula sido referido y que figuran en el formulario de Informacin de visita al paciente que se incluye en baugh paquete de cesar. Lleve todos los documentos que recibi al momento del cesar junto con los medicamentos que est tomando para baugh visita de nilton miento. Nuestro tratamiento no puede reemplazar la atencin mdica continua por parte de un proveedor de atencin primaria (PCP) fuera del departamento de emergencias. Prescriptions: Albuterol HFA [Ventolin HFA 90 mcg/actuation (8 g)] 1 puff IH Q6 PRN #1 inhaler PRN Reason: Cough Azithromycin [Zithromax] 250 mg PO DAILY #6 tab Benzonatate [Tessalon Perles] 100 mg PO TID PRN #12 tab PRN Reason: Cough predniSONE [predniSONE Tab] 40 mg PO DAILY 5 Days #10 tab Instructions: Acute Bronchitis, Adult (DC), Flu, Adult (DC) Forms: [facility] ED School/Work Excuse Print Language: BULGARIAN - POA Present On Arrival: None
[2019-01-08] MEDS ORDERED: Albuterol 0.083% Inhal Sol (2.5 mg/3 mL) UD ONE (19:13)
--- NOTE | 2019-01-09 09:01 | RAD ---
Date of service: 01/08/2019 HISTORY: cough COMPARISON: 05/09/2018 TECHNIQUE: Chest PA and lateral views FINDINGS: LUNGS: No active pulmonary disease. PLEURA: No significant pleural effusion identified. No pneumothorax apparent. CARDIOVASCULAR: No aortic atherosclerotic calcification present. Normal cardiac size. No pulmonary vascular congestion. OSSEOUS STRUCTURES: No significant abnormalities. VISUALIZED UPPER ABDOMEN: Normal. OTHER FINDINGS: None. IMPRESSION: No active disease. No significant interval change compared to the prior examination(s).
== END 2019-01-08 21:25 | disposition home or self-care (01) ==
LOC: H.ER 18:40
DX: J40 Bronchitis, not specified as acute or chronic (principal)